=== PATIENT | female | born 1935 | race Caucasian/White ===

== ENCOUNTER 2016-10-24 14:55 | Inpatient (IN) | payer MEDICARE, MEDICAID ==
--- NOTE | 2016-10-24 16:02 | ED Physician Chart ---
Chief Complaint/HPI - Patient Information Date Seen:: 10/24/16 Time Seen:: 15:45 Chief Complaint:: leaking G-tube History of Present Illness:: G-tube has been leaking for about one month. Historian:: EMS Review:: Transfer documents Reviewed Review of Systems - Review of Systems General/Constitutional: No fever, No chills Skin: No skin lesions Head: No headache Eyes: No loss of vision ENT: No earache Neck: No neck pain Cardio Vascular: No chest pain, No palpitations Pulmonary: No SOB, No cough GI: No nausea, No vomiting G/U: No dysuria Musculoskeletal: No bone or joint pain Endocrine: No polyuria Psychiatric: Other (not available) Hematopoietic: No bruising Allergic/Immuno: No urticaria Neurological: No syncope, Focal symptoms Past Medical History - Past Medical History Past Medical History: HTN, Dyslipidemia, Other (Parkinson's disease; osteoporosis; hemiplagia; CVA; contractures both knees and left wrist) Family History: Other (unavailable) Social History: Non Smoker, No Alcohol, Care Facility Surgical History: PEG/GTube Psychiatricy History: Other (patient is non verbal) Family Medical History - Family Member Mother History Unknown: Yes Physical Exam - Physical Examination General/Constitutional: No distress Other Gen/Cons comments:: non verbal Head: Atraumatic Other Eyes comments:: conjunctival discharge Skin: Nl inspection ENMT: External ears, nose nl Neck: No stridor Respiratory: Nl effort/Exclusion, Clear to Auscultation Cardio Vascular: RRR, No murmur, gallop, rubs GI: No tenderness/rebounding/guarding, No organomegaly Other GI comments:: G-tube does not have port for deflation of balloon Other Extremities comments:: contracture of knees and of left arm Other Neuro/Psych comments:: non-verbal Labs/Radiology/EKG Results - Lab Results Results: Laboratory Results - last 24 hr 10/24/16 10/24/16 10/24/16 16:13 16:13 16:13 WBC 9.7 RBC 4.40 Hgb 12.8 Hct 38.5 MCV 87.4 MCH 29.2 MCHC Differential 33.4 RDW 13.3 Plt Count 232 MPV 8.1 Neutrophils % 63.7 Lymphocytes % 23.5 Monocytes % 5.2 Eosinophils % 3.8 Basophils % 3.8 H PT 10.5 INR 1.06 PTT (Actin FS) 27.6 Sodium 133 L Potassium 4.4 Chloride 103 Carbon Dioxide 25.5 Anion Gap 8.9 BUN 22 Creatinine 0.5 L Est GFR ( Amer) TNP Est GFR (Non-Af Amer) TNP BUN/Creatinine Ratio 44.0 Glucose 94 Calcium 8.9 - EKG Interpretations Rhythm: NSR [place]: normal Rate: 72 ED Septic Shock - . Is Septic Shock (SBP<90, OR Lactate>4 mmol\L) present?: No Reassessment (Disposition) - Reassessment Reassessment Condition:: Unchanged - Diagnosis Diagnosis:: G-tube replacement; s/p CVA with aphasia - Patient Disposition Admitted to:: Med/Surg Spoke to:: Evert Rasmussen Admitting Medical Physician:: Evert Rasmussen Condition at Disposition:: Stable, Unchanged
[2016-10-24 16:27] LABS: % BASOPHILS 3.8 % (0.0-2.0); % EOSINOPHILS 3.8 % (0.0-5.0); % LYMPHOCYTES 23.5 % (20.0-50.0); % MONOCYTES 5.2 % (2.0-10.0); % NEUTROPHILS 63.7 % (40.0-80.0); HEMATOCRIT 38.5 % (35.0-45.0); HEMOGLOBIN 12.8 gm/dL (11.7-16.1); MEAN CELL VOLUME 87.4 fl (81-100); MEAN CORPUSCULAR HEMOGLOBIN 29.2 pg (27.0-31.0); MEAN CORPUSCULAR HGB CONC 33.4 pg (28.0-36.0); MEAN PLATELET VOLUME 8.1 fl; NEUTROPHILE ABSOLUTE 6.1 Th/cmm (1.8-8.0); PLATELET COUNT 232 Th/cmm (150-400); RED CELL DISTRIBUTION WIDTH 13.3 % (11.5-20.0); WHITE BLOOD COUNT 9.7 Th/cmm (4.8-10.8)
[2016-10-24 16:37] LABS: INR 1.06 (0.5-1.4); PROTHROMBIN TIME (TEST) 10.5 SECONDS (9.5-11.5)
[2016-10-24 16:38] LABS: ANION GAP 8.9 (7.0-16.0); BUN - UREA NITROGEN 22 mg/dL (7-25); CALCIUM SERUM 8.9 mg/dL (8.6-10.3); CARBON DIOXIDE 25.5 mEq/L (21.0-31.0); CHLORIDE 103 mEq/L (98-107); CREATININE - SERUM 0.5 mg/dL (0.6-1.2); GLUCOSE 94 mg/dL (70-105); POTASSIUM SERUM 4.4 mEq/L (3.5-5.1); SODIUM SERUM 133 mEq/L (136-145)
[2016-10-24] MEDS ORDERED: Magnesium Hydroxide (MOM) 30 mL UDC GT PRN (21:05)
[2016-10-24] MEDS: Sodium Chloride 0.9% 1,000 ML IV SCH (23:45)
--- NOTE | 2016-10-25 08:58 | General Progress Note ---
Subjective - Review of Systems Service Date: 10/25/16 Subjective: Non verbal Objective - Results Result Diagrams: 10/24/16 16:13 10/24/16 16:13 Recent Labs: Laboratory Last Values WBC 9.7 Th/cmm (4.8-10.8) 10/24/16 16:13 RBC 4.40 Mil/cmm (3.80-5.20) 10/24/16 16:13 Hgb 12.8 gm/dL (11.7-16.1) 10/24/16 16:13 Hct 38.5 % (35.0-45.0) 10/24/16 16:13 MCV 87.4 fl (81-100) 10/24/16 16:13 MCH 29.2 pg (27.0-31.0) 10/24/16 16:13 MCHC Differential 33.4 pg (28.0-36.0) 10/24/16 16:13 RDW 13.3 % (11.5-20.0) 10/24/16 16:13 Plt Count 232 Th/cmm (150-400) 10/24/16 16:13 MPV 8.1 fl 10/24/16 16:13 Neutrophils % 63.7 % (40.0-80.0) 10/24/16 16:13 Lymphocytes % 23.5 % (20.0-50.0) 10/24/16 16:13 Monocytes % 5.2 % (2.0-10.0) 10/24/16 16:13 Eosinophils % 3.8 % (0.0-5.0) 10/24/16 16:13 Basophils % 3.8 % (0.0-2.0) H 10/24/16 16:13 PT 10.5 SECONDS (9.5-11.5) 10/24/16 16:13 INR 1.06 (0.5-1.4) 10/24/16 16:13 PTT (Actin FS) 27.6 SECONDS (26.0-38.0) 10/24/16 16:13 Sodium 133 mEq/L (136-145) L 10/24/16 16:13 Potassium 4.4 mEq/L (3.5-5.1) 10/24/16 16:13 Chloride 103 mEq/L (98-107) 10/24/16 16:13 Carbon Dioxide 25.5 mEq/L (21.0-31.0) 10/24/16 16:13 Anion Gap 8.9 (7.0-16.0) 10/24/16 16:13 BUN 22 mg/dL (7-25) 10/24/16 16:13 Creatinine 0.5 mg/dL (0.6-1.2) L 10/24/16 16:13 Est GFR ( Amer) TNP 10/24/16 16:13 Est GFR (Non-Af Amer) TNP 10/24/16 16:13 BUN/Creatinine Ratio 44.0 10/24/16 16:13 Glucose 94 mg/dL (70-105) 10/24/16 16:13 Calcium 8.9 mg/dL (8.6-10.3) 10/24/16 16:13 - Physical Exam Vitals and I&O: Vital Signs Temp 98.5 F 10/25/16 04:00 Pulse 74 10/25/16 04:00 Resp 18 10/25/16 04:00 BP 160/86 10/25/16 04:00 Pulse Ox 98 10/25/16 04:00 Active Medications: Current Medications Acetaminophen (Tylenol 650mg/20.3ml Suspension) 640 mg GT Q8HR PRN PRN Reason: Pain (Moderate) Stop: 12/23/16 21:03 Ascorbic Acid (Vitamin C) 500 mg GT DAILY JAYLEN Stop: 12/24/16 08:59 Calcium/Vitamin D (Oscal W/Vitamin D) 1 tab GT BID JAYLEN Stop: 12/24/16 08:59 Carbidopa/Levodopa (Sinemet 25mg-100 Mg) 1 tab GT QID JAYLEN Stop: 12/24/16 08:59 Clonidine HCl (Catapres) 0.1 mg GT BID PRN PRN Reason: hypertension Stop: 12/23/16 21:04 Docusate Sodium (Colace) 200 mg PO DAILY [facility] Stop: 12/24/16 08:59 Sodium Chloride (Nacl 0.9%) 1,000 mls @ 75 mls/hr IV .[id number] JAYLEN Stop: 12/23/16 21:14 Last Admin: 10/24/16 23:45 Dose: 75 mls/hr [facility] 1 drop EACH EYE HS JAYLEN Stop: 12/24/16 20:59 Magnesium Hydroxide (Milk Of Magnesia) 30 ml GT HS PRN PRN Reason: Constipation Stop: 12/23/16 21:04 Multivitamins/Vitamin C (Theragran) 5 ml GT DAILY JAYLEN Stop: 12/24/16 08:59 General: Other (Eyes open , non verbal) HEENT: Atraumatic Neck: Supple Cardiovascular: Regular rate Lungs: Clear to auscultation Abdomen: Bowel sounds, Soft, Other (G-tube in place) Neurological: Other (Non ambulatory) Skin: Other (Warm and dry) Psych/Mental Status: Other (Confused, not oriented) Assessment/Plan - Assessment Assessment: Patient is awake, non verbal, in no acute distress. Dx: G-tube malfuntion, Dementia, Quadraplegic, S/p CVA, HTN, Dysphagia. - Plan Plan: Consult with GI for Peg change
[2016-10-25] MEDS ORDERED: Non-Formulary Item 1 EA (Vit C/Ascorbate Ca/Ascorb Sod [Vitamin C 500 Mg/15 Ml Liquid] 500 GT SCH (09:00)
[2016-10-25 10:18] LABS: % BASOPHILS 0.6 % (0.0-2.0); % EOSINOPHILS 3.2 % (0.0-5.0); % LYMPHOCYTES 22.4 % (20.0-50.0); % MONOCYTES 6.6 % (2.0-10.0); % NEUTROPHILS 67.2 % (40.0-80.0); HEMOGLOBIN 12.9 gm/dL (11.7-16.1); MEAN CELL VOLUME 88.1 fl (81-100); MEAN CORPUSCULAR HEMOGLOBIN 29.1 pg (27.0-31.0); MEAN CORPUSCULAR HGB CONC 33.1 pg (28.0-36.0); MEAN PLATELET VOLUME 8.2 fl; NEUTROPHILE ABSOLUTE 5.6 Th/cmm (1.8-8.0); PLATELET COUNT 223 Th/cmm (150-400); RED BLOOD COUNT 4.43 Mil/cmm (3.80-5.20); RED CELL DISTRIBUTION WIDTH 13.2 % (11.5-20.0); WHITE BLOOD COUNT 8.5 Th/cmm (4.8-10.8)
[2016-10-25 10:28] LABS: ALB/GLOB RATIO 0.9 (1.0-1.8); ALKALINE PHOSPHATASE 134 U/L (34-104); ANION GAP 8.9 (7.0-16.0); BILIRUBIN,TOTAL 0.6 mg/dL (0.3-1.0); BUN - UREA NITROGEN 21 mg/dL (7-25); CALCIUM SERUM 8.9 mg/dL (8.6-10.3); CARBON DIOXIDE 25.2 mEq/L (21.0-31.0); CHLORIDE 106 mEq/L (98-107); CREATININE - SERUM 0.6 mg/dL (0.6-1.2); GLUCOSE 83 mg/dL (70-105); POTASSIUM SERUM 4.1 mEq/L (3.5-5.1); SGOT 24 U/L (13-39); SGPT/ALT 28 U/L (7-52); SODIUM SERUM 136 mEq/L (136-145)
[2016-10-25 10:37] LABS: INR 1.08 (0.5-1.4); PROTHROMBIN TIME (TEST) 10.7 SECONDS (9.5-11.5)
[2016-10-25] MEDS ORDERED: Diatrizoate Meglumine/Diatri 30 mL Sol PO ONE (11:07)
--- NOTE | 2016-10-25 11:08 | Diagnostic Imaging Report ---
Upper GI (Limited) HISTORY: Gastrostomy tube placement Water-soluble contrast was instilled through the patient's gastrostomy tube. The exam demonstrates opacification the gastric lumen. There is an otherwise nonspecific bowel gas pattern. Stool noted in the rectal area. IMPRESSION: 1. Confirmation of gastrostomy tube within the gastric lumen
[2016-10-25] MEDS: Ascorbic Acid 500 mg/5 mL UDC GT SCH (11:14)
[2016-10-25] MEDS: Multivitamin 5 mL UDC GT SCH (11:15)
[2016-10-25] MEDS: Calcium Carb/Vit D 500 mg/200 U Tab GT SCH ×2 (11:15→17:59)
--- NOTE | 2016-10-25 11:25 | History & Physical ---
CHIEF COMPLAINT: Malfunction of the G-tube. HISTORY OF PRESENT ILLNESS: This is the case of an 80-year-old female who I follow in the assisted. I received a call from the assisted stating the G-tube was leaking and was necessary to replace. Order was given to send the patient to the hospital to change G-tube. PAST MEDICAL HISTORY: The patient has past medical history of dementia, status post CVA, hypertension, dysphagia, functional quadriplegia. The patient is bed bound. SOCIAL HISTORY: The patient is a permanent resident of a assisted. MEDICATIONS: Reviewed. PAST SURGICAL HISTORY: G-tube placement. REVIEW OF SYSTEMS: Information was not obtained secondary to the patient's mental condition. PHYSICAL EXAMINATION: GENERAL: Does reveal fairly nourished and developed female. Eye opens, not verbal, in no acute distress. HEENT: Head is normocephalic and atraumatic. Eyes: Pupils reactive to light. Nose: No evidence of nasal obstruction. Ears: No evidence of any discharge. Mouth: Fairly ____, teeth missing. LUNGS: Bilateral decreased air entry. HEART: Regular rhythm. ABDOMEN: Soft, nontender. Bowel sounds present. G-tube in place with ____ from G-tube placement. EXTREMITIES: Limited movement of all extremities. The patient is functional quadriplegic. No edema. NEUROLOGICAL: The patient is awake, confused, nonverbal. Neurological examination was not completed secondary to the patient's mental condition. IMPRESSION: 1. G-tube malfunction. 2. Dementia. 3. Status post cerebrovascular accident. 4. Hypertension. 5. Dysphagia. 6. Functional quadriplegic. 7. Bed bound. PLAN: 1. The patient will be admitted in medical surgical floor. 2. Consult with GI for G-tube replacement. 3. Continue with assisted medications. 4. Continue with the same feeding from assisted. 5. IV normal saline. JOB# [id number]
[2016-10-25] MEDS: Sodium Chloride 0.9% 1,000 ML IV SCH (13:50)
--- NOTE | 2016-10-25 14:00 | Operative Report ---
INPATIENT GASTROINTESTINAL PROCEDURE NOTE NAME OF PROCEDURE: G-tube change. REFERRING PHYSICIAN: Dr. Rasmussen. REASON FOR PROCEDURE: Malfunctioning G-tube, dysphagia. PREOPERATIVE DIAGNOSES: Dysphagia, malfunctioning G-tube. POSTOPERATIVE DIAGNOSES: Malfunctioning G-tube, dysphagia, and G-tube change. DESCRIPTION OF PROCEDURE: The patient was placed on her back. The old G-tube was identified. It was an original PEG tube type. It was pulled out by traction method. A new 20-Nigerien gastrostomy tube was lubricated. The tip inserted through the gastrocutaneous fistula entering stomach lumen. Internal balloon was inflated with 15 mL of sterile saline. Outer flange was secured in position. Procedure was then completed. COMPLICATIONS: None. FINDINGS: New 20-Nigerien gastrostomy tube placed. RECOMMENDATIONS: 1. KUB Gastrografin confirmed placement. 2. If it is in stomach, may begin using it. 3. Check residual every 6 hours and hold if greater than 100 mL. Thank you for allowing me to participate. Please call me if any questions. JOB# [id number]
[2016-10-25] MEDS ORDERED: VTE Chemical Prophylaxis Screen/Admission MC PRN (16:54)
--- NOTE | 2016-10-25 23:26 | Consultation ---
INPATIENT GI CONSULT REFERRING PHYSICIAN: Dr. Rasmussen. REASON FOR CONSULTATION: Malfunctioning G-tube. HISTORY OF PRESENT ILLNESS: This is an 80-year-old female with a G-tube that is leaking and we were asked to see the patient. The patient is otherwise a poor historian, unable to give me a meaningful history. PAST MEDICAL HISTORY: Dysphagia, hypertension, hyperlipidemia, Parkinson disease, osteoporosis, and stroke. PAST SURGICAL HISTORY: PEG tube placement. FAMILY HISTORY: Noncontributory. SOCIAL HISTORY: No tobacco, alcohol, or IV drug usage. ALLERGIES: None. CURRENT MEDICATIONS: Tylenol, vitamin C, Os-Cm, Sinemet, Catapres, Colace, and milk of magnesia. REVIEW OF SYSTEMS: Unobtainable. PHYSICAL EXAMINATION: VITAL SIGNS: Temperature 98.5, breathing 18, pulse 74, blood pressure 160/86, and satting 98%. GENERAL: No apparent distress. HEENT: Eyes: Anicteric, normal conjunctivae. Head is normocephalic and atraumatic. Moist mucous membranes. NECK: Soft, supple. CHEST: Clear, normal effort. CARDIOVASCULAR: Regular rate and rhythm. ABDOMEN: Soft, nontender, and nondistended with a G-tube. SKIN: Warm and dry. EXTREMITIES: Reveal no cyanosis. PSYCHOLOGICAL: Awake. LABORATORY DATA: Show white count 9.7, hemoglobin 12.8, and platelets of 232,000. INR is 1.06. IMPRESSION: An 80-year-old female with underlying dysphagia, has a G-tube that is malfunctioning, leaking actually and will need to have it replaced by traction method. PLAN: 1. G-tube to be changed at bedside. 2. Continue supportive care. Thank you for allowing me to participate. Please call me if you have any questions. JOB# [id number]
[2016-10-26 06:32] LABS: % BASOPHILS 0.4 % (0.0-2.0); % EOSINOPHILS 2.8 % (0.0-5.0); % LYMPHOCYTES 22.3 % (20.0-50.0); % MONOCYTES 5.4 % (2.0-10.0); % NEUTROPHILS 69.1 % (40.0-80.0); HEMATOCRIT 40.3 % (35.0-45.0); HEMOGLOBIN 13.4 gm/dL (11.7-16.1); MEAN CELL VOLUME 87.7 fl (81-100); MEAN CORPUSCULAR HEMOGLOBIN 29.1 pg (27.0-31.0); MEAN CORPUSCULAR HGB CONC 33.1 pg (28.0-36.0); NEUTROPHILE ABSOLUTE 6.6 Th/cmm (1.8-8.0); PLATELET COUNT 224 Th/cmm (150-400); RED CELL DISTRIBUTION WIDTH 13.1 % (11.5-20.0); WHITE BLOOD COUNT 9.5 Th/cmm (4.8-10.8)
[2016-10-26 06:54] LABS: ALB/GLOB RATIO 0.9 (1.0-1.8); ALKALINE PHOSPHATASE 136 U/L (34-104); ANION GAP 12.6 (7.0-16.0); BILIRUBIN,TOTAL 0.6 mg/dL (0.3-1.0); BUN - UREA NITROGEN 18 mg/dL (7-25); CALCIUM SERUM 9.3 mg/dL (8.6-10.3); CARBON DIOXIDE 19.9 mEq/L (21.0-31.0); CHLORIDE 106 mEq/L (98-107); CREATININE - SERUM 0.5 mg/dL (0.6-1.2); GLUCOSE 89 mg/dL (70-105); POTASSIUM SERUM 4.5 mEq/L (3.5-5.1); SGOT 26 U/L (13-39); SGPT/ALT 7 U/L (7-52); SODIUM SERUM 134 mEq/L (136-145)
--- NOTE | 2016-10-26 08:48 | General Progress Note ---
Subjective - Review of Systems Service Date: 10/26/16 Subjective: Non verbal Objective - Results Result Diagrams: 10/26/16 05:21 10/26/16 05:21 Recent Labs: Laboratory Last Values WBC 9.5 Th/cmm (4.8-10.8) 10/26/16 05:21 RBC 4.60 Mil/cmm (3.80-5.20) 10/26/16 05:21 Hgb 13.4 gm/dL (11.7-16.1) 10/26/16 05:21 Hct 40.3 % (35.0-45.0) 10/26/16 05:21 MCV 87.7 fl (81-100) 10/26/16 05:21 MCH 29.1 pg (27.0-31.0) 10/26/16 05:21 MCHC Differential 33.1 pg (28.0-36.0) 10/26/16 05:21 RDW 13.1 % (11.5-20.0) 10/26/16 05:21 Plt Count 224 Th/cmm (150-400) 10/26/16 05:21 MPV 9.0 fl 10/26/16 05:21 Neutrophils % 69.1 % (40.0-80.0) 10/26/16 05:21 Lymphocytes % 22.3 % (20.0-50.0) 10/26/16 05:21 Monocytes % 5.4 % (2.0-10.0) 10/26/16 05:21 Eosinophils % 2.8 % (0.0-5.0) 10/26/16 05:21 Basophils % 0.4 % (0.0-2.0) 10/26/16 05:21 PT 10.7 SECONDS (9.5-11.5) 10/25/16 10:00 INR 1.08 (0.5-1.4) 10/25/16 10:00 PTT (Actin FS) 27.6 SECONDS (26.0-38.0) 10/24/16 16:13 Sodium 134 mEq/L (136-145) L 10/26/16 05:21 Potassium 4.5 mEq/L (3.5-5.1) 10/26/16 05:21 Chloride 106 mEq/L (98-107) 10/26/16 05:21 Carbon Dioxide 19.9 mEq/L (21.0-31.0) L 10/26/16 05:21 Anion Gap 12.6 (7.0-16.0) 10/26/16 05:21 BUN 18 mg/dL (7-25) 10/26/16 05:21 Creatinine 0.5 mg/dL (0.6-1.2) L 10/26/16 05:21 Est GFR ( Amer) TNP 10/26/16 05:21 Est GFR (Non-Af Amer) TNP 10/26/16 05:21 BUN/Creatinine Ratio 36.0 10/26/16 05:21 Glucose 89 mg/dL (70-105) 10/26/16 05:21 Calcium 9.3 mg/dL (8.6-10.3) 10/26/16 05:21 Total Bilirubin 0.6 mg/dL (0.3-1.0) 10/26/16 05:21 AST 26 U/L (13-39) 10/26/16 05:21 ALT 7 U/L (7-52) 10/26/16 05:21 Alkaline Phosphatase 136 U/L (34-104) H 10/26/16 05:21 Total Protein 7.4 gm/dL (6.0-8.3) 10/26/16 05:21 Albumin 3.4 gm/dL (3.7-5.3) L 10/26/16 05:21 Globulin 4.0 gm/dL 10/26/16 05:21 Albumin/Globulin Ratio 0.9 (1.0-1.8) L 10/26/16 05:21 - Physical Exam Vitals and I&O: Vital Signs Temp 97.7 F 10/26/16 07:57 Pulse 68 10/26/16 07:57 Resp 18 10/26/16 07:57 BP 108/52 10/26/16 07:57 Pulse Ox 98 10/26/16 07:57 Intake & Output 10/25/16 10/26/16 10/26/16 18:59 06:59 18:59 Intake Total 1000 Balance 1000 Intake: Intake, IV Amount 1000 Sodium Chloride 0.9% 1, 1000 000 ml @ 75 mls/hr IV . [id number] [facility] Rx#:[id number] Active Medications: Current Medications Acetaminophen (Tylenol 650mg/20.3ml Suspension) 640 mg GT Q8HR PRN PRN Reason: Pain (Moderate) Stop: 12/23/16 21:03 Ascorbic Acid (Vitamin C) 500 mg GT DAILY JAYLEN Stop: 12/24/16 08:59 Last Admin: 10/25/16 11:14 Dose: Not Given Calcium/Vitamin D (Oscal W/Vitamin D) 1 tab GT BID JAYLEN Stop: 12/24/16 08:59 Last Admin: 10/25/16 17:59 Dose: 1 tab Carbidopa/Levodopa (Sinemet 25mg-100 Mg) 1 tab GT QID JAYLEN Stop: 12/24/16 08:59 Last Admin: 10/25/16 23:32 Dose: 1 tab Clonidine HCl (Catapres) 0.1 mg GT BID PRN PRN Reason: SBP>160 Stop: 12/23/16 21:04 Last Admin: 10/26/16 05:24 Dose: 0.1 mg Docusate Sodium (Colace) 200 mg PO DAILY JAYLEN Stop: 12/24/16 08:59 Last Admin: 10/25/16 11:15 Dose: Not Given Heparin Sodium (Porcine) (Heparin) 5,000 units SUBQ Q12H JAYLEN Stop: 12/24/16 20:59 Last Admin: 10/25/16 23:32 Dose: 5,000 units Sodium Chloride (Nacl 0.9%) 1,000 mls @ 75 mls/hr IV .[id number] JAYLEN Stop: 12/23/16 21:14 Last Admin: 10/25/16 13:50 Dose: 75 mls/hr Latanoprost (Xalatan 0.005% Oph Soln) 1 drop EACH EYE HS JAYLEN Stop: 12/24/16 20:59 Last Admin: 10/25/16 23:33 Dose: 1 drop Magnesium Hydroxide (Milk Of Magnesia) 30 ml GT HS PRN PRN Reason: Constipation Stop: 12/23/16 21:04 Miscellaneous (Vte Chemical Prophylaxis Screen/ Admission) 1 ea [facility] PRN PRN PRN Reason: PROTOCOL Stop: 12/24/16 16:53 Multivitamins/Vitamin C (Theragran) 5 ml GT DAILY JAYLEN Stop: 12/24/16 08:59 Last Admin: 01/06/17 11:15 Dose: Not Given General: Other (Eyes open, non verbal) HEENT: Atraumatic Neck: Supple Cardiovascular: Regular rate Lungs: Other (Bilateral decreased air entry) Abdomen: Bowel sounds, Soft, Other (PEG in place.) Extremities: Other (No edema) Neurological: Other (Funtional quadriplegic) Skin: Other (Warm and dry) Psych/Mental Status: Other (Non verbal.) - Procedures Procedures: Procedures Procedure Code Date CHANGE FEEDING DEVICE IN UP INTEST TRACT, CLAM DREDGER APPROACH [id number] 10/24/16 CHANGE GASTROSTOMY TUBE 74581 10/24/16 Assessment/Plan - Assessment Assessment: Patient non verbal, in no acute distress. Dx: G-tube malfuntion, Dementia, Quadraplegic, S/p CVA, HTN, Dysphagia. G-tube was replaced. - Plan Plan: CXR will be request. G-tube feeding will be started.
[2016-10-26] MEDS: Multivitamin 5 mL UDC GT SCH (09:19)
[2016-10-26] MEDS: Ascorbic Acid 500 mg/5 mL UDC GT SCH (09:20)
[2016-10-26] MEDS: Calcium Carb/Vit D 500 mg/200 U Tab GT SCH ×2 (09:20→16:53)
--- NOTE | 2016-10-26 10:53 | Diagnostic Imaging Report ---
Portable chest x-ray HISTORY: Shortness of breath There is elevation the right hemidiaphragm along with colonic interposition between the diaphragm and right lobe the liver. No acute focal pulmonary processes. IMPRESSION: 1. No acute abnormalities
[2016-10-26] MEDS: Sodium Chloride 0.9% 1,000 ML IV SCH ×2 (14:20→16:55)
[2016-10-27] MEDS: Sodium Chloride 0.9% 1,000 ML IV SCH ×2 (02:17→16:33)
[2016-10-27] MEDS: Calcium Carb/Vit D 500 mg/200 U Tab GT SCH ×2 (09:17→16:22)
[2016-10-27] MEDS: Multivitamin 5 mL UDC GT SCH (09:17)
--- NOTE | 2016-10-27 10:47 | General Progress Note ---
Subjective - Review of Systems Service Date: 10/27/16 Subjective: Non verbal Objective - Results Result Diagrams: 10/26/16 05:21 10/26/16 05:21 Recent Labs: Laboratory Last Values WBC 9.5 Th/cmm (4.8-10.8) 10/26/16 05:21 RBC 4.60 Mil/cmm (3.80-5.20) 10/26/16 05:21 Hgb 13.4 gm/dL (11.7-16.1) 10/26/16 05:21 Hct 40.3 % (35.0-45.0) 10/26/16 05:21 MCV 87.7 fl (81-100) 10/26/16 05:21 MCH 29.1 pg (27.0-31.0) 10/26/16 05:21 MCHC Differential 33.1 pg (28.0-36.0) 10/26/16 05:21 RDW 13.1 % (11.5-20.0) 10/26/16 05:21 Plt Count 224 Th/cmm (150-400) 10/26/16 05:21 MPV 9.0 fl 10/26/16 05:21 Neutrophils % 69.1 % (40.0-80.0) 10/26/16 05:21 Lymphocytes % 22.3 % (20.0-50.0) 10/26/16 05:21 Monocytes % 5.4 % (2.0-10.0) 10/26/16 05:21 Eosinophils % 2.8 % (0.0-5.0) 10/26/16 05:21 Basophils % 0.4 % (0.0-2.0) 10/26/16 05:21 PT 10.7 SECONDS (9.5-11.5) 10/25/16 10:00 INR 1.08 (0.5-1.4) 10/25/16 10:00 PTT (Actin FS) 27.6 SECONDS (26.0-38.0) 10/24/16 16:13 Sodium 134 mEq/L (136-145) L 10/26/16 05:21 Potassium 4.5 mEq/L (3.5-5.1) 10/26/16 05:21 Chloride 106 mEq/L (98-107) 10/26/16 05:21 Carbon Dioxide 19.9 mEq/L (21.0-31.0) L 10/26/16 05:21 Anion Gap 12.6 (7.0-16.0) 10/26/16 05:21 BUN 18 mg/dL (7-25) 10/26/16 05:21 Creatinine 0.5 mg/dL (0.6-1.2) L 10/26/16 05:21 Est GFR ( Amer) TNP 10/26/16 05:21 Est GFR (Non-Af Amer) TNP 10/26/16 05:21 BUN/Creatinine Ratio 36.0 10/26/16 05:21 Glucose 89 mg/dL (70-105) 10/26/16 05:21 Calcium 9.3 mg/dL (8.6-10.3) 10/26/16 05:21 Total Bilirubin 0.6 mg/dL (0.3-1.0) 10/26/16 05:21 AST 26 U/L (13-39) 10/26/16 05:21 ALT 7 U/L (7-52) 10/26/16 05:21 Alkaline Phosphatase 136 U/L (34-104) H 10/26/16 05:21 Total Protein 7.4 gm/dL (6.0-8.3) 10/26/16 05:21 Albumin 3.4 gm/dL (3.7-5.3) L 10/26/16 05:21 Globulin 4.0 gm/dL 10/26/16 05:21 Albumin/Globulin Ratio 0.9 (1.0-1.8) L 10/26/16 05:21 - Physical Exam Vitals and I&O: Vital Signs Temp 98.9 F 10/27/16 07:59 Pulse 52 10/27/16 07:59 Resp 19 10/27/16 08:00 BP 130/60 10/27/16 07:59 Pulse Ox 99 10/27/16 07:59 Intake & Output 10/26/16 10/27/16 10/27/16 18:59 06:59 18:59 Intake Total 1023.75 1302.5 Balance 1023.75 1302.5 Intake: Intake, IV Amount 193.75 702.5 Sodium Chloride 0.9% 1, 193.75 702.5 000 ml @ 75 mls/hr IV . [id number] [facility] Rx#:[id number] Tube Feeding 580 480 Other 250 120 Other: # Voids 5 3 # Bowel Movements 0 Active Medications: Current Medications Acetaminophen (Tylenol 650mg/20.3ml Suspension) 640 mg GT Q8HR PRN PRN Reason: Pain (Moderate) Stop: 12/23/16 21:03 Ascorbic Acid (Vitamin C) 500 mg GT DAILY [facility] Stop: 12/24/16 08:59 Last Admin: 10/26/16 09:20 Dose: 500 mg Calcium/Vitamin D (Oscal W/Vitamin D) 1 tab GT BID [facility] Stop: 12/24/16 08:59 Last Admin: 10/27/16 09:17 Dose: 1 tab Carbidopa/Levodopa (Sinemet 25mg-100 Mg) 1 tab GT QID [facility] Stop: 12/24/16 08:59 Last Admin: 10/27/16 09:17 Dose: 1 tab Clonidine HCl (Catapres) 0.1 mg GT BID PRN PRN Reason: SBP>160 Stop: 12/23/16 21:04 Last Admin: 10/26/16 05:24 Dose: 0.1 mg Docusate Sodium (Colace) 200 mg PO DAILY [facility] Stop: 12/24/16 08:59 Last Admin: 10/27/16 09:17 Dose: 200 mg Doxycycline Hyclate (Vibramycin) 100 mg PO Q12HR [facility] Stop: 12/25/16 20:59 Last Admin: 10/27/16 09:17 Dose: 100 mg Heparin Sodium (Porcine) (Heparin) 5,000 units SUBQ Q12H [facility] Stop: 12/24/16 20:59 Last Admin: 10/27/16 09:17 Dose: 5,000 units Sodium Chloride (Nacl 0.9%) 1,000 mls @ 75 mls/hr IV .[id number] [facility] Stop: 12/23/16 21:14 Last Admin: 10/27/16 02:17 Dose: 75 mls/hr Latanoprost (Xalatan 0.005% Ophth Soln) 1 drop EACH EYE HS [facility] Stop: 12/24/16 20:59 Last Admin: 10/26/16 21:14 Dose: 1 drop Magnesium Hydroxide (Milk Of Magnesia) 30 ml GT HS PRN PRN Reason: Constipation Stop: 12/23/16 21:04 Miscellaneous (Vte Chemical Prophylaxis Screen/ Admission) 1 ea [facility] PRN PRN PRN Reason: PROTOCOL Stop: 12/24/16 16:53 Multivitamins/Vitamin C (Theragran) 5 ml GT DAILY JAYLEN Stop: 12/24/16 08:59 Last Admin: 10/27/16 09:17 Dose: 5 ml General: Other (Eyes open non verbal) HEENT: Atraumatic Neck: Supple Cardiovascular: Regular rate Lungs: Clear to auscultation Abdomen: Bowel sounds, Soft, Other (Peg in place) Neurological: Other (Non ambulatory) Skin: Other (Warm and dry) Psych/Mental Status: Other (Confused) - Procedures Procedures: Procedures Procedure Code Date CHANGE FEEDING DEVICE IN UP INTEST TRACT, TAPE LIBRARIAN APPROACH [id number] 10/24/16 CHANGE GASTROSTOMY TUBE 09993 10/24/16 Assessment/Plan - Assessment Assessment: Patient non verbal, in no acute distress. Dx: G-tube malfuntion, Dementia, Quadraplegic, S/p CVA, HTN, Dysphagia. G-tube was replaced. - Plan Plan: Case was discussed with MYRON and she wants patient be discharge to a SNF close to her home.
[2016-10-27] MEDS: Ascorbic Acid 500 mg/5 mL UDC GT SCH (12:23)
[2016-10-28] MEDS: Sodium Chloride 0.9% 1,000 ML IV SCH (05:57)
[2016-10-28] MEDS ORDERED: Dextrose 50% 50 mL Abboject IVP ONE (07:12)
--- NOTE | 2016-10-28 08:41 | General Progress Note ---
Subjective - Review of Systems Service Date: 10/28/16 Subjective: Non verbal Objective - Results Result Diagrams: 10/26/16 05:21 10/26/16 05:21 Recent Labs: Laboratory Last Values WBC 9.5 Th/cmm (4.8-10.8) 10/26/16 05:21 RBC 4.60 Mil/cmm (3.80-5.20) 10/26/16 05:21 Hgb 13.4 gm/dL (11.7-16.1) 10/26/16 05:21 Hct 40.3 % (35.0-45.0) 10/26/16 05:21 MCV 87.7 fl (81-100) 10/26/16 05:21 MCH 29.1 pg (27.0-31.0) 10/26/16 05:21 MCHC Differential 33.1 pg (28.0-36.0) 10/26/16 05:21 RDW 13.1 % (11.5-20.0) 10/26/16 05:21 Plt Count 224 Th/cmm (150-400) 10/26/16 05:21 MPV 9.0 fl 10/26/16 05:21 Neutrophils % 69.1 % (40.0-80.0) 10/26/16 05:21 Lymphocytes % 22.3 % (20.0-50.0) 10/26/16 05:21 Monocytes % 5.4 % (2.0-10.0) 10/26/16 05:21 Eosinophils % 2.8 % (0.0-5.0) 10/26/16 05:21 Basophils % 0.4 % (0.0-2.0) 10/26/16 05:21 PT 10.7 SECONDS (9.5-11.5) 10/25/16 10:00 INR 1.08 (0.5-1.4) 10/25/16 10:00 PTT (Actin FS) 27.6 SECONDS (26.0-38.0) 10/24/16 16:13 Sodium 134 mEq/L (136-145) L 10/26/16 05:21 Potassium 4.5 mEq/L (3.5-5.1) 10/26/16 05:21 Chloride 106 mEq/L (98-107) 10/26/16 05:21 Carbon Dioxide 19.9 mEq/L (21.0-31.0) L 10/26/16 05:21 Anion Gap 12.6 (7.0-16.0) 10/26/16 05:21 BUN 18 mg/dL (7-25) 10/26/16 05:21 Creatinine 0.5 mg/dL (0.6-1.2) L 10/26/16 05:21 Est GFR ( Amer) TNP 10/26/16 05:21 Est GFR (Non-Af Amer) TNP 10/26/16 05:21 BUN/Creatinine Ratio 36.0 10/26/16 05:21 Glucose 89 mg/dL (70-105) 10/26/16 05:21 Calcium 9.3 mg/dL (8.6-10.3) 10/26/16 05:21 Total Bilirubin 0.6 mg/dL (0.3-1.0) 10/26/16 05:21 AST 26 U/L (13-39) 10/26/16 05:21 ALT 7 U/L (7-52) 10/26/16 05:21 Alkaline Phosphatase 136 U/L (34-104) H 10/26/16 05:21 Total Protein 7.4 gm/dL (6.0-8.3) 10/26/16 05:21 Albumin 3.4 gm/dL (3.7-5.3) L 10/26/16 05:21 Globulin 4.0 gm/dL 10/26/16 05:21 Albumin/Globulin Ratio 0.9 (1.0-1.8) L 10/26/16 05:21 - Physical Exam Vitals and I&O: Vital Signs Temp 98.3 F 10/28/16 04:00 Pulse 80 10/28/16 04:00 Resp 18 10/28/16 04:00 BP 143/77 10/28/16 04:00 Pulse Ox 97 10/28/16 04:00 Intake & Output 10/27/16 10/28/16 10/28/16 18:59 06:59 18:59 Intake Total 1000 1720 Output Total 30 Balance 1000 1690 Intake: Intake, IV Amount 1000 1000 Sodium Chloride 0.9% 1, 1000 1000 000 ml @ 75 mls/hr IV . [id number] [facility] Rx#:[id number] Tube Feeding 480 Other 240 Output: Gastric Drainage 30 Other: # Voids 3 # Bowel Movements 2 Active Medications: Current Medications Acetaminophen (Tylenol 650mg/20.3ml Suspension) 640 mg GT Q8HR PRN PRN Reason: Pain (Moderate) Stop: 12/23/16 21:03 Last Admin: 10/27/16 22:02 Dose: 640 mg Ascorbic Acid (Vitamin C) 500 mg GT DAILY [facility] Stop: 12/24/16 08:59 Last Admin: 10/27/16 12:23 Dose: 500 mg Calcium/Vitamin D (Oscal W/Vitamin D) 1 tab GT BID [facility] Stop: 12/24/16 08:59 Last Admin: 10/27/16 16:22 Dose: 1 tab Carbidopa/Levodopa (Sinemet 25mg-100 Mg) 1 tab GT QID [facility] Stop: 12/24/16 08:59 Last Admin: 10/27/16 22:02 Dose: 1 tab Clonidine HCl (Catapres) 0.1 mg GT BID PRN PRN Reason: SBP>160 Stop: 12/23/16 21:04 Last Admin: 10/26/16 05:24 Dose: 0.1 mg Docusate Sodium (Colace) 200 mg PO DAILY [facility] Stop: 12/24/16 08:59 Last Admin: 10/27/16 09:17 Dose: 200 mg Doxycycline Hyclate (Vibramycin) 100 mg PO Q12HR [facility] Stop: 12/25/16 20:59 Last Admin: 10/27/16 22:03 Dose: 100 mg Heparin Sodium (Porcine) (Heparin) 5,000 units SUBQ Q12H [facility] Stop: 12/24/16 20:59 Last Admin: 10/27/16 22:03 Dose: 5,000 units Sodium Chloride (Nacl 0.9%) 1,000 mls @ 75 mls/hr IV .[id number] [facility] Stop: 12/23/16 21:14 Last Admin: 10/28/16 05:57 Dose: 75 mls/hr Latanoprost (Xalatan 0.005% Ophth Soln) 1 drop EACH EYE HS [facility] Stop: 12/24/16 20:59 Last Admin: 10/27/16 22:02 Dose: 1 drop Magnesium Hydroxide (Milk Of Magnesia) 30 ml GT HS PRN PRN Reason: Constipation Stop: 12/23/16 21:04 Miscellaneous (Vte Chemical Prophylaxis Screen/ Admission) 1 ea [facility] PRN PRN PRN Reason: PROTOCOL Stop: 12/24/16 16:53 Multivitamins/Vitamin C (Theragran) 5 ml GT DAILY [facility] Stop: 12/24/16 08:59 Last Admin: 10/27/16 09:17 Dose: 5 ml General: Other (Eyes open, non verbal) HEENT: Atraumatic Cardiovascular: Regular rate Lungs: Clear to auscultation Abdomen: Bowel sounds, Soft, Other (PEG in place) Extremities: Other (No edema) Neurological: Other (Non ambulatory) Skin: Other (Warm and dry) Psych/Mental Status: Other (Non verbal) - Procedures Procedures: Procedures Procedure Code Date CHANGE FEEDING DEVICE IN UP INTEST TRACT, BUSINESS BANKING MANAGER APPROACH [id number] 10/24/16 CHANGE GASTROSTOMY TUBE [id number] 10/24/16 Assessment/Plan - Assessment Assessment: Patient non verbal, in no acute distress. Dx: G-tube malfuntion, Dementia, Quadraplegic, S/p CVA, HTN, Dysphagia. G-tube was replaced. - Plan Plan: Case was discussed with MYRON and she wants patient be discharge to a SNF close to her home. Patient is discharge.
[2016-10-28] MEDS: Calcium Carb/Vit D 500 mg/200 U Tab GT SCH (09:21)
[2016-10-28] MEDS: Multivitamin 5 mL UDC GT SCH (09:21)
[2016-10-28] MEDS: Ascorbic Acid 500 mg/5 mL UDC GT SCH (09:21)
--- NOTE | 2016-10-30 21:04 | Discharge Summary ---
CHIEF COMPLAINT: Malfunction of the G-tube. HISTORY OF PRESENT ILLNESS: This is the case of an 80-year-old female who was sent from half-way to ER secondary to malfunction of G-tube. The patient was sent to hospital to change G-tube. HOSPITAL COURSE AND TREATMENT: This patient was admitted in the medical/surgical floor. She was started on an IV normal saline. She was continued with same feeding and all the medications and consult with GI was done, and a schedule to change G-tube was done. After G-tube was changed, the patient continued with the same feeding, and at this moment, the decision to discharge the patient was done. At the moment of the discharge, the patient was awake, eyes opened, nonverbal, in no acute distress. CONSULT DONE IN THIS CASE: Gastroenterology, Dr. Chaudhry. DISPOSITION: The patient was sent back to half-way where power of commercial real estate attorney person decided to put the patient. DIAGNOSES: 1. Malfunction of G-tube. 2. Dementia. 3. Hypertension. 4. Status post cerebrovascular accident. 5. Dysphagia. 6. Functional quadriplegic. 7. Bedbound. JOB# [id number]
== END 2016-10-28 15:00 | DRG 393 ==
LOC: ER 14:55 → MSI 19:46
PROVIDERS: ADMIT General Practice; ATTEND General Practice
PROC: 0D20XUZ Change Feeding Device in Upper Intestinal Tract, External Approach (ICD-10-PCS; principal; 2016-10-25)
DX: K94.23 Gastrostomy malfunction (principal); R53.2 Functional quadriplegia; G20 Parkinson's disease; F03.90 Unspecified dementia, unspecified severity, without behavioral disturbance, psychotic disturbance, mood disturbance, and anxiety; R13.10 Dysphagia, unspecified; I69.359 Hemiplegia and hemiparesis following cerebral infarction affecting unspecified side; I10 Essential (primary) hypertension; E78.5 Hyperlipidemia, unspecified; M81.0 Age-related osteoporosis without current pathological fracture; I69.320 Aphasia following cerebral infarction; Y83.3 Surgical operation with formation of external stoma as the cause of abnormal reaction of the patient, or of later complication, without mention of misadventure at the time of the procedure; Y92.89 Other specified places as the place of occurrence of the external cause; Z74.01 Bed confinement status
CPT/HCPCS: 36415-UA; 71010-TC; 80048-TC; 80053-TC; 85025-TC; 85610-TC; 85730-TC; 87070-90; 87075-90; 87205-90; 90799; 93005; J1644; J7030; Z7610

== ENCOUNTER 2017-01-15 09:05 | Emergency (ER) | payer MEDICARE, MEDICAID ==
[2017-01-15] MEDS ORDERED: Diatrizoate Meglumine/Diatri 30 mL Sol ONE (09:43)
--- NOTE | 2017-01-15 09:46 | ED Physician Chart ---
Chief Complaint/HPI - Patient Information Date Seen:: 01/15/17 Time Seen:: 09:38 Chief Complaint:: g tube problem History of Present Illness:: pt has had her g tube dislodged sometime during the nt. pt was sent over for g tube to be replaced. the hole has been kept open by the insertion of a jeter catheter. this is a pt of dr rasmussen...ed staff confirmed w dr perez that he wants us to replace the tube. pt is nonverbal and debilitated...cant give hx Allergies:: Allergies Allergy/AdvReac Type Severity Reaction Status Date / Time No Known Allergies Allergy Verified 10/24/16 15:58 Vitals:: Vital Signs - 8 hr 01/15/17 09:15 Temp 98.4 F HR 81 RR 17 BP 159/79 O2 Sat % 97 Historian:: Patient Review of Systems - Review of Systems General/Constitutional: No fever, No chills, No weight loss, No weakness, No diaphoresis, No edema, No loss of appetite, Other (history is very limited...pt is nonverbal and debilitated...cant give hx) Skin: No skin lesions, No rash, No bruising Head: No headache, No light-headedness Eyes: No loss of vision, No pain, No diplopia ENT: No earache, No nasal drainage, No sore throat, No tinnitus Neck: No neck pain, No swelling, No thyromegaly, No stiffness, No mass noted Cardio Vascular: No chest pain, No palpitations, No PND, No orthopnea, No edema Pulmonary: No SOB, No cough, No sputum, No wheezing GI: No nausea, No vomiting, No diarrhea, No pain, No melena, No hematochezia, No constipation, No hematemesis G/U: No dysuria, No frequency, No hematuria Musculoskeletal: No bone or joint pain, No back pain, No muscle pain Endocrine: No polyuria, No polydipsia Psychiatric: Prior psych history, No depression, No anxiety, No suicidal ideation Hematopoietic: No bruising, No lymphadenopathy Allergic/Immuno: No urticaria, No angioedema Neurological: No syncope, No focal symptoms, No weakness, No paresthesia, No headache, No seizure, No dizziness, Confusion, No vertigo Past Medical History - Past Medical History Past Medical History: HTN, CVA/TIA, Dementia, Other (parkinsons dz, cva, glaucoma, ) Social History: Care Facility Surgical History: PEG/GTube Medication: Reviewed Family Medical History - Family Member Mother History Unknown: Yes Physical Exam - Physical Examination General/Constitutional: Awake, Well-developed, well-nourished, Alert, No distress, Non-toxic appearing Other Gen/Cons comments:: chronically debilitated, nonverbal, pt cant speak or communicated nonverbally. pt resists attempt to examine her. she has contracture of all extremities. oral hygeine is atrocious however pt fights to keep me from examining mouth so daily care must be very difficult. mucosa is moist. she appears dementia. Head: Atraumatic Eyes: Lids, conjuctiva normal, PERRL, EOMI Skin: Nl inspection, No rash, No skin lesions, No ecchymosis, Well hydrated, No lymphadenopathy ENMT: External ears, nose nl, Nasal exam nl, Lips, teeth, gums nl Neck: Nontender, Full ROM w/o pain, No JVD, No nuchal rigidity, No bruit, No mass, No stridor Respiratory: Nl effort/Exclusion, Clear to Auscultation, No Wheeze/Rhonchi/Rales Cardio Vascular: RRR, No murmur, gallop, rubs, NL S1 S2 GI: No tenderness/rebounding/guarding, No organomegaly, No hernia, Normal BS's, Nondistended, No mass/bruits, No McBurney tenderness Other GI comments:: well developed gi track to luq. currently has jeter cath in place. no blood or injury visible. : No CVA tenderness Extremities: No tenderness or effusion, Full ROM, normal strength in all extremities, No edema, Normal digits & nails Neuro/Psych: DTR's symmetric Other Neuro/Psych comments:: moves all limbs but not ambulatory. cant follow any commands etc.. Misc: normal gait, Normal back, No paraspinal tenderness Assessment - Procedures Procedures:: replacement of g tube. jeter cath removed. site washed. lube placed at stoma ...18 cabrera peg tube advanced easily through stoma and baloon inflated to 15 ml. no complication. no pain. no bleeding. no resistance. x ray w g-graffin ordered to confirm placement ok..rad dr to read study. Informed Consent: Procedure/risk/benefits explained by MD: No (pt not capable of understanding) ED Septic Shock - . Is Septic Shock (SBP<90, OR Lactate>4 mmol\L) present?: No - <6hrs of presentation: Vital Signs: Vital Signs - 8 hr 01/15/17 09:15 Temp 98.4 F HR 81 RR 17 BP 159/79 O2 Sat % 97 Reassessment (Disposition) - Reassessment Reassessment:: g tube placement confirmed ok by Finn Guerra. Arrangement made to send pt back to [place]. Reassessment Condition:: Improved - Diagnosis Diagnosis:: 1 s/p Peg tube dislodged 2 Peg tube replaced in ED - Aftercare/Follow up Instructions Aftercare/Follow-Up Instructions:: Refer to Discharge Instructions - Patient Disposition Discharge/Transfer:: Dual Rate Dealer Care - SNF Condition at Disposition:: Improved ED Discharge Plan - Patient Disposition Admit/Discharge/Transfer: Discharge/Transfered to SNF Condition at Disposition: Stable Instructions: Care of a Feeding Tube, Gastric Tube Replacement Accepting Physician: Evert Rasmussen [Primary Care Provider] - 1-3 Days
[2017-01-15] MEDS ORDERED: Diatrizoate Meglumine/Diatri 30 mL Sol PO ONE (10:01)
--- NOTE | 2017-01-15 10:13 | Diagnostic Imaging Report ---
Upper GI limited History: G-tube confirmation Comparison: Upper GI series on 10/25/2016 Findings: Utility Worker Roller Shop view demonstrates gas-filled loops of bowel in a nonspecific pattern. Small bilateral effusions are incidentally noted. A percutaneous feeding tube is noted. The second image demonstrates contrast opacification of the stomach and proximal small bowel. IMPRESSION: Intraluminal confirmation of patient's percutaneous gastric feeding tube. Nonspecific bowel gas pattern. Small bilateral pleural effusions incidentally noted.
== END 2017-01-15 12:10 ==
LOC: ER 09:05
DX: Z43.1 Encounter for attention to gastrostomy (principal); I10 Essential (primary) hypertension; Z86.73 Personal history of transient ischemic attack (TIA), and cerebral infarction without residual deficits; Z93.1 Gastrostomy status
CPT/HCPCS: Z7502; Z7610

== ENCOUNTER 2017-08-05 13:19 | Inpatient (IN) | payer MEDICARE, MEDICAID ==
--- NOTE | 2017-08-05 13:33 | ED Physician Chart ---
ED Chief Complaint/HPI - Patient Information Date Seen:: 08/05/17 Time Seen:: 13:15 Chief Complaint:: G-Tube Dysfunction History of Present Illness:: onset x one day of G-Tube dysfunction; no report of trauma, H/As, S/T, neck pain , C/P, SOB, cough, Abd/Flank pain, A/N/V/D/C, fever, chills, or urinary s/s Allergies:: Allergies Allergy/AdvReac Type Severity Reaction Status Date / Time No Known Allergies Allergy Verified 10/24/16 15:58 Historian:: Patient, EMS Review:: Nurse's Note Reviewed, EMS run form Reviewed, Transfer documents Reviewed ED Review of Systems - Review of Systems General/Constitutional: No fever, No chills, No weight loss, No weakness, No diaphoresis, No edema, No loss of appetite Skin: No skin lesions, No rash, No bruising Head: No headache, No light-headedness Eyes: No loss of vision, No pain, No diplopia ENT: No earache, No nasal drainage, No sore throat, No tinnitus Neck: No neck pain, No swelling, No thyromegaly, No stiffness, No mass noted Cardio Vascular: No chest pain, No palpitations, No PND, No orthopnea, No edema Pulmonary: No SOB, No cough, No sputum, No wheezing GI: No nausea, No vomiting, No diarrhea, No pain, No melena, No hematochezia, No constipation, No hematemesis, Other (Dysphagia) G/U: No dysuria, No frequency, No hematuria Latex Fashions Designer: No vaginal discharge, No abnormal vaginal bleed, No contraction Musculoskeletal: No bone or joint pain, No back pain, No muscle pain Endocrine: No polyuria, No polydipsia Psychiatric: No prior psych history, No depression, No anxiety, No suicidal ideation Hematopoietic: No bruising, No lymphadenopathy Allergic/Immuno: No urticaria, No angioedema Neurological: No syncope, Focal symptoms, Weakness, Paresthesia, No headache, No seizure, Dizziness, Confusion, Vertigo ED Past Medical History - Past Medical History Obtainable: Yes Past Medical History: HTN, CVA/TIA, Dyslipidemia, Other (Parkinson's Disease; Osteoporosis) Family History: Diabetes Melitus, HTN Social History: Non Smoker, No Alcohol, No Drug Use, Single, Care Facility Surgical History: PEG/GTube Psychiatricy History: Dementia Medication: Reviewed Family Medical History - Family Member Mother History Unknown: Yes ED Physical Exam - Physical Examination General/Constitutional: Awake, Well-developed, well-nourished, Alert, No distress, GCS 15, Non-toxic appearing, Ambulatory Head: Atraumatic Eyes: Lids, conjuctiva normal, PERRL, EOMI Skin: Nl inspection, No rash, No skin lesions, No ecchymosis, Well hydrated, No lymphadenopathy ENMT: External ears, nose nl, Nasal exam nl, Lips, teeth, gums nl Neck: Nontender, Full ROM w/o pain, No JVD, No nuchal rigidity, No bruit, No mass, No stridor Respiratory: Nl effort/Exclusion, Clear to Auscultation, No Wheeze/Rhonchi/Rales Cardio Vascular: RRR, No murmur, gallop, rubs, NL S1 S2 GI: No tenderness/rebounding/guarding, No organomegaly, No hernia, Normal BS's, Nondistended, No mass/bruits, No McBurney tenderness Other GI comments:: + G-Tube Dysfunction : No CVA tenderness Extremities: No tenderness or effusion, Full ROM, normal strength in all extremities, No edema, Normal digits & nails Neuro/Psych: DTR's symmetric, Normal sensory exam, Normal motor strength, Judgement/insight normal, Mood normal, Normal gait, No focal deficits Other Neuro/Psych comments:: Disoriented, Confused, and Non-Verbal Misc: Normal back, No paraspinal tenderness ED Labs/Radiology/EKG Results - Lab Results Comments:: Na+: 133; WBC: 11.7 ED Septic Shock - . Is Septic Shock (SBP<90, OR Lactate>4 mmol\L) present?: No ED Reassessment (Disposition) - Reassessment Reassessment Condition:: Improved - Diagnosis Diagnosis:: Dx: G-tube Dysfunction' ; Leukocytosis; Hyponatremia; Dehydration; - Aftercare/Follow up Instructions Aftercare/Follow-Up Instructions:: Counseled pt regarding lab results/diagnosis & need follow up, Counseled pt & family regarding lab results/diagnosis & need follow up - Patient Disposition Discharge/Transfer:: Acute Care w/in this hosp Accepting Physician:: Dr. Rasmussen Time Called:: 1430 Time Responded:: 14:30 Admitted to:: Med/Surg Spoke to:: Dr. Rasmussen Admitting Medical Physician:: Dr. Rasmussen Condition at Disposition:: Stable, Improved
[2017-08-05 14:08] LABS: % BASOPHILS 0.1 % (0.0-2.0); % LYMPHOCYTES 18.5 % (20.0-50.0); % MONOCYTES 3.7 % (2.0-10.0); % NEUTROPHILS 75.7 % (40.0-80.0); HEMOGLOBIN 13.4 gm/dL (12-16); MEAN CELL VOLUME 88.2 fl (81-100); MEAN CORPUSCULAR HEMOGLOBIN 28.8 pg (27.0-31.0); MEAN CORPUSCULAR HGB CONC 32.7 pg (28.0-36.0); MEAN PLATELET VOLUME 7.1 fl; NEUTROPHILE ABSOLUTE 8.8 Th/cmm (1.8-8.0); PLATELET COUNT 363 Th/cmm (150-400); RED BLOOD COUNT 4.65 Mil/cmm (3.80-5.20); RED CELL DISTRIBUTION WIDTH 13.4 % (11.5-20.0)
[2017-08-05 14:18] LABS: WHITE BLOOD COUNT 11.5 Th/cmm (4.8-10.8)
[2017-08-05 14:22] LABS: ALB/GLOB RATIO 0.9 (1.0-1.8); ALKALINE PHOSPHATASE 130 U/L (34-104); ANION GAP 9.1 (7.0-16.0); BILIRUBIN,TOTAL 0.5 mg/dL (0.3-1.0); BUN - UREA NITROGEN 19 mg/dL (7-25); BUN/CREATININE RATIO 31.7; CARBON DIOXIDE 25.3 mEq/L (21.0-31.0); CHLORIDE 103 mEq/L (98-107); CHOLESTEROL 148 mg/dL (<200); CREATININE - SERUM 0.6 mg/dL (0.6-1.2); GLUCOSE 108 mg/dL (70-105); POTASSIUM SERUM 4.4 mEq/L (3.5-5.1); SGOT 24 U/L (13-39); SGPT/ALT 28 U/L (7-52); SODIUM SERUM 133 mEq/L (136-145); TRIGLYCERIDES 71 mg/dL (<150)
--- NOTE | 2017-08-05 14:24 | Diagnostic Imaging Report ---
CHEST X-RAY: AP view INDICATION: pain COMPARISON: Chest x-ray 10/26/2016 FINDINGS: There is marked elevation of the right hemidiaphragm limiting assessment of the right lung base. Right basal atelectatic changes are noted. Cardiomegaly is noted. No gross effusion. Degenerative changes of the spine are noted. IMPRESSION: Redemonstration of marked elevation of the right hemidiaphragm limiting assessment of right lung base. Right basal atelectatic changes are seen with no focal consolidation identified. Cardiomegaly.
[2017-08-05 14:38] LABS: INR 1.75 (0.5-1.4); PROTHROMBIN TIME (TEST) 18.7 SECONDS (9.5-11.5)
[2017-08-05] MEDS ORDERED: Sodium Chloride 0.9% 1,000 ML IV SCH ×2 (15:19→17:00)
[2017-08-05 15:53] LABS: URINE BILIRUBIN NEGATIVE (NEGATIVE); URINE BLOOD NEGATIVE (NEGATIVE); URINE GLUCOSE (UA) NEGATIVE (NEGATIVE); URINE KETONE NEGATIVE (NEGATIVE); URINE PH 6.5 (4.6 - 8.0); URINE PROTEIN 30 mg/dL (NEGATIVE); URINE UROBILINOGEN 0.2 E.U./dL (0.2 - 1.0)
[2017-08-05 15:54] LABS: URINE COLOR YELLOW
[2017-08-05 15:55] LABS: URINE BACTERIA NONE SEEN /hpf (NONE SEEN); URINE EPITHELIAL CELLS MODERATE /lpf (FEW); URINE RBC NONE SEEN /hpf (0-5); URINE WBC NONE SEEN /hpf (0-5)
[2017-08-05] MEDS ORDERED: Diatrizoate Meglumine/Diatri 30 mL Sol PO ONE (15:55)
[2017-08-05] MEDS ORDERED: Magnesium Hydroxide (MOM) 30 mL UDC GT PRN (16:53)
[2017-08-05] MEDS ORDERED: Albuterol Nebulizer 2.5mg/3mL HHN PRN (16:53)
[2017-08-05] MEDS ORDERED: CALCIUM CARBONATE GT SCH (17:00)
[2017-08-05] MEDS ORDERED: VITAMIN D3 GT SCH (17:00)
[2017-08-05] MEDS ORDERED: Calcium Carb/Vit D 500 mg/200 U Tab GT SCH (18:21)
--- NOTE | 2017-08-05 18:31 | Consultation ---
DATE OF CONSULTATION: 08/05/2017 REQUESTING PHYSICIAN: Dr. Rasmussen. REASON FOR CONSULTATION: Dysphagia with G-tube malfunction. HISTORY OF PRESENT ILLNESS: An 81-year-old female with fdc resident, admitted for G-tube malfunction and dysphagia. We were asked to evaluate the patient for this reason. The patient is a poor historian and further history is obtained from medical chart and computer records. PAST MEDICAL HISTORY: Notable for old stroke, hypertension, hyperlipidemia, Parkinson's disease, osteoporosis, diabetes mellitus and hypertension. ALLERGIES: None. MEDICATIONS: Here are IV fluids. SOCIAL HISTORY: shelter resident. Unknown tobacco, alcohol, or drug status. FAMILY HISTORY: Noncontributory. REVIEW OF SYSTEMS: Negative. PHYSICAL EXAMINATION: VITAL SIGNS: Temperature 98.1, blood pressure is 150/90, pulse of 86, respirations 22, O2 sat 94%. GENERAL: The patient is well-developed, well-nourished female in no acute distress. HEENT: Sclerae nonicteric. Oropharynx is clear. CARDIOVASCULAR: Regular rate and rhythm. LUNGS: Clear to auscultation bilaterally. ABDOMEN: Soft, nontender. Intact replacement type G-tube. EXTREMITIES: No edema. RECTAL: Deferred. LABORATORY DATA: WBC 11.5, hemoglobin 13.4, platelet count is 363. INR is 1.75. Creatinine is 0.6. Liver enzymes normal, alkaline phosphatase mildly elevated at 130, albumin 3.5. IMPRESSION: 1. Dysphagia with G-tube malfunction. 2. Dementia. 3. Old stroke. 4. Leukocytosis, rule out sepsis. 5. Diabetes mellitus. 6. Hypertension. RECOMMENDATIONS: 1. We will replace G-tube at bedside. 2. G-tube care. 3. Further recommendations following G-tube replacement. 4. Monitor labs. 5. Continue current medications. Thank you Dr. Rasmussen for involving us in the care of your patient. If you have any further questions, please call us. JOB# [id number]
--- NOTE | 2017-08-05 19:40 | Operative Report ---
DATE OF SURGERY: 08/05/2017 PROCEDURE: G-tube replacement. DESCRIPTION OF PROCEDURE: The procedure took place at the bedside at the Medical/Surgical unit of [facility]. The patient was kept in a supine position. The existing G-tube was removed after its inner balloon tip was deflated using a syringe. Using the same gastrocutaneous fistula site, a new 20-Tristanian replacement G-tube was inserted into the stomach. Its inner balloon tip was inflated using 15 mL of sterile water. The outer bumper was placed as close to the skin as possible. Overlying dressing was placed. The tip was noted to be in good position. The patient tolerated the procedure well. No complications are anticipated. RECOMMENDATIONS: 1. May use new G-tube for water flushes and medications. 2. Tube feedings to be started later on once position confirmed in the stomach by Gastrografin KUB. Thank you, Dr. Rasmussen for involving us in the care of your patient. If you have any further questions, please call us. JOB# [id number] MATT
[2017-08-06 05:08] LABS: % BASOPHILS 0.2 % (0.0-2.0); % EOSINOPHILS 3.8 % (0.0-5.0); % LYMPHOCYTES 23.4 % (20.0-50.0); % MONOCYTES 4.7 % (2.0-10.0); % NEUTROPHILS 67.9 % (40.0-80.0); HEMOGLOBIN 12.9 gm/dL (12-16); MEAN CELL VOLUME 88.2 fl (81-100); MEAN PLATELET VOLUME 7.4 fl; NEUTROPHILE ABSOLUTE 6.5 Th/cmm (1.8-8.0); PLATELET COUNT 346 Th/cmm (150-400); RED BLOOD COUNT 4.31 Mil/cmm (3.80-5.20); RED CELL DISTRIBUTION WIDTH 13.4 % (11.5-20.0); WHITE BLOOD COUNT 9.7 Th/cmm (4.8-10.8)
[2017-08-06 05:24] LABS: ALB/GLOB RATIO 0.8 (1.0-1.8); ALKALINE PHOSPHATASE 118 U/L (34-104); ANION GAP 9.8 (7.0-16.0); BILIRUBIN,TOTAL 0.6 mg/dL (0.3-1.0); BUN - UREA NITROGEN 17 mg/dL (7-25); BUN/CREATININE RATIO 28.3; CALCIUM SERUM 8.6 mg/dL (8.6-10.3); CARBON DIOXIDE 24.7 mEq/L (21.0-31.0); CHLORIDE 105 mEq/L (98-107); CREATININE - SERUM 0.6 mg/dL (0.6-1.2); GLUCOSE 90 mg/dL (70-105); POTASSIUM SERUM 4.5 mEq/L (3.5-5.1); SGOT 25 U/L (13-39); SGPT/ALT 29 U/L (7-52); SODIUM SERUM 135 mEq/L (136-145)
--- NOTE | 2017-08-06 08:02 | Diagnostic Imaging Report ---
Exam: Gastrostomy tube placement. Findings: After the injection of contrast material into the gastrostomy tube there is normal opacification stomach. There is evidence for extravasation of contrast material most likely superficially on the skin surface. Clinical correlation recommended. IMPRESSION: Gastrostomy tube in the stomach Superficial extravasation of contrast material most likely in the abdominal wall.
--- NOTE | 2017-08-06 08:50 | History and Physical ---
History of Present Illness - HPI Chief Complaint: G tube dysfunction. HPI: This is a patient that I follow at a SNF, I received a call that G-tube was liking, order to transfer to ER was done. Vital Signs: Last Vital Signs Temp 98.6 F 08/06/17 04:00 Pulse 77 08/06/17 06:57 Resp 20 08/06/17 06:57 BP 157/89 08/06/17 04:00 Pulse Ox 97 08/06/17 06:57 Past Medical History Cardiovascular: Report: CAD, CHF, HTN Pulmonary: Report: No Pertinent Hx PIERCING SPECIALIST: Report: Dementia GI: Report: Other (Dysphagia PEG in place.) Psych: Report: Psychosis Musculoskeletal: Report: Weakness, Stiffness (Funtional Quadriplegia), Other Rheumatologic: Report: No pertinent Hx Infectious Disease: Report: No Pertinent Hx (Frequents UTI) Renal/: Report: No Pertinent Hx Endocrine: Report: No Pertinent Hx Dermatology: Report: No Pertinent Hx - Past Surgical History Past Surgical History: No pertinent Hx Family Medical History - Family Member Mother History Unknown: Yes Social History Smoke: No Alcohol: None Drugs: None Lives: [place] Domestic Violence: Negative - Medications Home Medications: Home Medication Medication Instructions Recorded Type Magnesium Hydroxide [Milk of 30 ml GT HS PRN 10/24/16 History Magnesia] Vit C/Ascorbate Ca/Ascorb Sod 500 mg GT DAILY 10/24/16 History [Vitamin C 500 mg/15 ml Liquid] cloNIDine HCl [Catapres] 0.1 mg GT Q12H PRN 10/24/16 History Carbidopa/Levodopa 25/100 mg 1 tab GT QID #0 tab 10/28/16 Rx [Sinemet 25mg-100 mg] Latanoprost 0.005% Ophth Soln 1 drop EACH EYE HS #0 drops 10/28/16 Rx [Xalatan 0.005% Ophth Soln] Acetaminophen [Tylenol 650 mg GT Q4H PRN MDD 3gm in 24hrs 01/15/17 History 650mg/20.3mL Suspension] Acetaminophen [Tylenol Extra 1,000 mg PO Q4HR PRN 01/15/17 History Strength] Bisacodyl [Dulcolax 10 Mg Supp] 10 mg RC DAILY PRN 01/15/17 History Fleet Enema [Fleet Enema] 135 ml RC Q48H PRN 01/15/17 History Multivitamin w/ Minerals 15 ml GT DAILY 01/15/17 History [Theragran M] Sennosides A and B [Senna] 17.2 mg GT HS 01/15/17 History Albuterol Nebulizer 2.5mg/3mL 2.5 mg IH Q6HR PRN 08/05/17 History [Albuterol Neb UD*] Amino Acids/Protein Hydrolys 30 ml GT BID 08/05/17 History [Pro-Stat Sugar Free Awc 887 ml] Aspirin [Aspirin Chewable] 81 mg GT DAILY 08/05/17 History Calcium Carbonate/Vitamin D3 1 tab GT BID 08/05/17 History [Calcium 500 + D Tablet] Collagenase Clostridium Hist. 1 appl TP DAILY 08/05/17 History [Santyl] Promethazine DM 6.25/15mg-5mL 5 ml GT Q6H PRN 08/05/17 History [Phenergan DM 6.25/15mg-5 mL] - Allergies Allergies/Adverse Reactions: Allergies Allergy/AdvReac Type Severity Reaction Status Date / Time No Known Allergies Allergy Verified 10/24/16 15:58 Review of Systems - Review of Systems Constitutional: Report: Weakness, Other (Patient non Verbal, non ambulatory) Eyes: Report: No Significant ENT: Report: No Significant Respiratory: Report: No Significant Cardiovascular: Report: No Significant Gastrointestinal: Report: Other (PEG liking) Genitourinary: Report: No Significant Musculoskeletal: Report: No Significant Skin: Report: No Significant Neurological: Report: No Significant Physical Exam - Physical Exam HEENT: Report: Ears Nose Throat within normal limits Neck: Report: Within normal limits Cardiovascular Systems: Report: Regular, Rate and Rhythm Respiratory: Report: Breath Sounds are within normal limits Abdomen: Report: Non-tender to palpation, PEG site is clean Back: Report: Inspection of back is within normal limits. Extremities: Report: Extremities are contracted Skin: Report: Color of skin is within normal limits Neuro/Psych: Report: Weakness or sensory loss noted. (Non Verbal) - Lab Results All Lab Results last 24 hours: Laboratory Results - last 24 hr 08/05/17 08/06/17 08/06/17 15:00 04:42 04:42 WBC 9.7 RBC 4.31 Hgb 12.9 Hct 38.0 L MCV 88.2 MCH 30.0 MCHC Differential 34.0 RDW 13.4 Plt Count 346 MPV 7.4 Neutrophils % 67.9 Lymphocytes % 23.4 Monocytes % 4.7 Eosinophils % 3.8 Basophils % 0.2 Sodium 135 L Potassium 4.5 Chloride 105 Carbon Dioxide 24.7 Anion Gap 9.8 BUN 17 Creatinine 0.6 Est GFR ( Amer) TNP Est GFR (Non-Af Amer) TNP BUN/Creatinine Ratio 28.3 Glucose 90 Calcium 8.6 Total Bilirubin 0.6 AST 25 ALT 29 Alkaline Phosphatase 118 H Total Protein 7.1 Albumin 3.2 L Globulin 3.9 Albumin/Globulin Ratio 0.8 L Urine Source MIDSTREAM Urine Color YELLOW Urine Clarity HAZY Urine pH 6.5 Ur Specific [place] 1.015 Urine Protein 30 H Urine Glucose (UA) NEGATIVE Urine Ketones NEGATIVE Urine Blood NEGATIVE Urine Nitrate NEGATIVE Urine Bilirubin NEGATIVE Urine Urobilinogen 0.2 Ur Leukocyte Esterase NEGATIVE Urine RBC NONE SEEN Urine WBC NONE SEEN Ur Epithelial Cells MODERATE Urine Bacteria NONE SEEN - Assessment Assessment: Current Active Problems Problem Status Onset MALFUNCTION OF GASTRIC FEEDING TUBE Acute Patient is awake, eyes open, non following verbal commands, non verbal, bed bound. Dx: G-tube malfuntion, Dementia, S/P CVA, HTN, Dysphagia, Funtional Quadriplegia, Bed bound. - Plan Plan: Peg was replaced by GI.
[2017-08-06] MEDS ORDERED: Multivitamin w/ Minerals 15 mL UDC GT SCH (09:00)
[2017-08-06] MEDS ORDERED: Aspirin 81mg Chewable Tab GT SCH (09:00)
== END 2017-08-06 19:25 | disposition home or self-care (01) | DRG 393 ==
LOC: ER 13:19 → MSI 14:35
PROVIDERS: ADMIT General Practice; ATTEND General Practice
PROC: 0D20XUZ Change Feeding Device in Upper Intestinal Tract, External Approach (ICD-10-PCS; principal; 2017-08-05)
DX: K94.23 Gastrostomy malfunction (principal); R53.2 Functional quadriplegia; G20 Parkinson's disease; F03.90 Unspecified dementia, unspecified severity, without behavioral disturbance, psychotic disturbance, mood disturbance, and anxiety; E87.1 Hypo-osmolality and hyponatremia; I11.0 Hypertensive heart disease with heart failure; I50.9 Heart failure, unspecified; R13.10 Dysphagia, unspecified; E78.5 Hyperlipidemia, unspecified; M81.0 Age-related osteoporosis without current pathological fracture; E86.0 Dehydration; D72.829 Elevated white blood cell count, unspecified; Y83.8 Other surgical procedures as the cause of abnormal reaction of the patient, or of later complication, without mention of misadventure at the time of the procedure; Y92.89 Other specified places as the place of occurrence of the external cause; F29 Unspecified psychosis not due to a substance or known physiological condition; Z79.82 Long term (current) use of aspirin; Z74.01 Bed confinement status; Z86.73 Personal history of transient ischemic attack (TIA), and cerebral infarction without residual deficits; Z83.3 Family history of diabetes mellitus; Z82.49 Family history of ischemic heart disease and other diseases of the circulatory system
CPT/HCPCS: 36415-UA; 71010-TC; 74000-TC; 80053-TC; 80061-TC; 81001-TC; 82550-TC; 83605; 83880-TC; 84484-TC; 85025-TC; 85610-TC; 85730-TC; 93005; 94760; A4217; J7030; Z7610

== ENCOUNTER 2017-12-16 00:03 | Inpatient (IN) | payer MEDICARE, MEDICAID ==
[2017-12-16] MEDS ORDERED: Pantoprazole 40 mg EC Tab PO STA (00:23)
[2017-12-16 00:43] LABS: % BASOPHILS 0.2 % (0.0-2.0); % EOSINOPHILS 5.1 % (0.0-5.0); % LYMPHOCYTES 27.7 % (20.0-50.0); EOSINOPHILE ABSOLUTE 0.5 Th/cmm (0.1-0.4); HEMATOCRIT 39.2 % (41.0-60); HEMOGLOBIN 12.8 gm/dL (12-16); LYMPHOCYTE ABSOLUTE 2.8 Th/cmm (1.5-3.0); MEAN CELL VOLUME 87.8 fl (81-100); MEAN CORPUSCULAR HEMOGLOBIN 28.6 pg (27.0-31.0); MEAN CORPUSCULAR HGB CONC 32.6 pg (28.0-36.0); MEAN PLATELET VOLUME 7.9 fl; MONOCYTE ABSOLUTE 0.4 Th/cmm (0.3-1.0); NEUTROPHILE ABSOLUTE 6.3 Th/cmm (1.8-8.0); PLATELET COUNT 299 Th/cmm (150-400); RED BLOOD COUNT 4.46 Mil/cmm (3.80-5.20); RED CELL DISTRIBUTION WIDTH 13.9 % (11.5-20.0)
[2017-12-16 00:56] LABS: INR 0.99 (0.5-1.4); PROTHROMBIN TIME (TEST) 10.3 SECONDS (9.5-11.5)
[2017-12-16 01:02] LABS: ALB/GLOB RATIO 0.9 (1.0-1.8); ALBUMIN 3.3 gm/dL (3.7-5.3); ALKALINE PHOSPHATASE 102 U/L (34-104); ANION GAP 12.6 (7.0-16.0); BILIRUBIN,TOTAL 0.3 mg/dL (0.3-1.0); BUN - UREA NITROGEN 34 mg/dL (7-25); CARBON DIOXIDE 25.8 mEq/L (21.0-31.0); CHLORIDE 108 mEq/L (98-107); CREATININE - SERUM 0.6 mg/dL (0.6-1.2); GLUCOSE 105 mg/dL (70-105); POTASSIUM SERUM 4.4 mEq/L (3.5-5.1); SGOT 19 U/L (13-39); SGPT/ALT 9 U/L (7-52); SODIUM SERUM 142 mEq/L (136-145)
--- NOTE | 2017-12-16 02:12 | Transfer Summary ---
DATE OF TRANSFER: 12/16/2017 ADDITIONAL DIAGNOSIS: That patient had unspecified dementia without behavioral disturbances, unspecified sequelae, of unspecified cerebrovascular disease, essential hypertension, quadriplegia, unspecified dysphagia following for an unspecified cerebrovascular disease, encounter for attention to gastrostomy Parkinson's disease, muscle weakness, generalized contractures, unspecified dysphagia, unspecified gastrostomy malfunction, unspecified glaucoma. The patient is getting the usual G-tube feeding and I believe the aspirin should be stopped on this patient and Protonix or Prilosec or any other PPI, Prevacid should be given to prevent any stress ulcers for this patient. Otherwise, the usual other medications that has been given should be continued for the patient. Physical therapy, gait therapy for the abnormality of gait should be continued and we will report the lab results to Dr. Coley and he will decide about the further plan of treatment on the patient. Otherwise, the patient does not have anything significant seen. JOB# [id number]
--- NOTE | 2017-12-16 02:19 | ER Physician Documentation ---
DATE OF SERVICE: 12/16/2017 EMERGENCY ROOM EVALUATION AND TREATMENT The patient was referred by Dr. Coley from [facility] and [facility]. The reason being that there was some brown drainage from the G-tube the patient herself cannot speak any, she is in fairly sleepy status and we checked the area at the G-tube site. There was slight brownish discharge and discharge was cleared and after that there was no discharge at all of any kind. There is no evidence of any bleeding noted. There is no occult blood noted over that. We will get some labs done to see if there is any drop in hematocrit to see if there is any PT, PTT has been changed, but the patient should get a Protonix daily over at alf. The patient in all probability may not need any admission over here. The patient's history of present illness is essentially same as above. REVIEW OF SYSTEMS: Cannot be evaluated. On examination, the patient appears to be resting, sleeping and not in any acute cardiorespiratory distress. The patient does not speak. The patient is contracted and bedbound. PHYSICAL EXAMINATION: VITAL SIGNS: Vital signs show temperature 97.6, pulse is 75, respirations 24, blood pressure 103/53. GENERAL: Not in any acute cardiorespiratory distress. HEENT: Jugular venous pressure essentially appears to be normal. Eyes normal conjunctivae are pink, sclerae white. HEENT is normal. As far as G-tube malfunctioning, according to the nurse no malfunction was detected, but we will recheck again and see if there is any malfunction. If there is any malfunctioning then the patient might need admission to the hospital. If no malfunctioning then the patient might not need it, but we will leave it to Dr. Coley to decide. 40 mg, Protonix has been given to the patient. CHEST: Clear. Trachea being central. Fairly good air entry in both lungs. Heart sounds appears to be normal. ABDOMEN: Soft, benign and negative and there is brownish discharge. It does not look like any occult blood coming out. In conclusion, the patient has some brown discharge from the G-tube, nothing major that is seen. The patient was dressed up again and connected again back to its usual place. The reason for transfer was G-tube feeding gastrostomy malfunction, do not see that. We will recheck it again. She has contractures Parkinson's disease, hypertension, muscle weakness. There is a G-tube ____ is present. Total care was demanded. He has dependent contacts on ____. Hypertension. The patient has dementia, behavioral disturbances, 100 mL of a G-tube or residual things was seen. The labs that were done at the alf showed a BUN of 31, creatinine of 0.64, potassium of 4.4, sodium 137, chloride of 103, CO2 of 27. We have also ordered some lab workup to see if there is anything else happening. LFTs are normal. Albumin is low at 3. The patient is more caloric-protein intake diet. Total protein is found to be 6.7 and patient's white count was within normal limits. Hemoglobin, hematocrit was also all normal, 12.5, 39.4, neutrophils 60.6. In conclusion, the patient's FINAL DIAGNOSES: Questionable G-tube malfunction and status post CVA, Parkinson's disease, osteoporosis, quadriplegia, dementia, history of PEG, Parkinson's disease, etc. Labs have been ordered. Once lab comes, we will look at it and then may the decision and report it to Dr. Coley and let him make the decision what he wants to do. JOB# [id number]
[2017-12-16] MEDS ORDERED: Albuterol Nebulizer 2.5mg/3mL HHN PRN (13:24)
[2017-12-16] MEDS ORDERED: Acetaminophen 500 MG TAB GT PRN (13:24)
[2017-12-16] MEDS ORDERED: Fleet Enema 135 mL RC PRN (13:25)
[2017-12-16] MEDS ORDERED: Promethazine DM 6.25/15mg-5mL 5 ML SYR PO PRN (13:27)
[2017-12-16] MEDS ORDERED: Non-Formulary Item 1 EA (Amino Acids/Protein Hydrolys [Pro-Stat Awc Liquid] 30 ML) GT SCH (14:00)
--- NOTE | 2017-12-16 14:52 | History and Physical ---
History of Present Illness - HPI Chief Complaint: drainage from peg HPI: This is a 82 year old female who is a resident of [facility] due to drainage from peg site Vital Signs: Last Vital Signs Temp 97.5 F 12/16/17 14:00 Pulse 72 12/16/17 14:00 Resp 18 12/16/17 14:13 BP 170/84 12/16/17 14:00 Pulse Ox 97 12/16/17 14:00 Past Medical History Other History: cva parkinsons osteoporosis quadriplegia dementia Family Medical History - Family Member Mother History Unknown: Yes Social History Smoke: No Alcohol: None Drugs: None Lives: [facility] - Medications Home Medications: Home Medication Medication Instructions Recorded Type Acetaminophen [Tylenol Extra 1,000 mg GT Q4HR PRN 12/16/17 History Strength] Acetaminophen [Tylenol] 650 mg GT Q4HR PRN 12/16/17 History Albuterol Nebulizer 2.5mg/3mL 2.5 mg IH Q6HR PRN 12/16/17 History [Albuterol Neb UD*] Amino Acids/Protein Hydrolys 30 ml GT TID 12/16/17 History [Pro-Stat Sugar Free Awc 887 ml] Aspirin [Aspirin Chewable] 81 mg GT DAILY 12/16/17 History Bisacodyl [Dulcolax 10 Mg Supp] 10 mg RC DAILY PRN 12/16/17 History Calcium Carbonate/Vitamin D3 1 tab GT BID 12/16/17 History [Calcium 500 + D Tablet] Carbidopa/Levodopa [Sinemet 25-100 1 each GT QID 12/16/17 History mg Tablet] Clonidine HCl [Catapres] 0.1 mg GT Q12H PRN 12/16/17 History Fleet Enema [Fleet Enema] 135 ml RC Q48H PRN 12/16/17 History Latanoprost 0.005% Ophth Soln 1 drop EACH EYE HS 12/16/17 History [Xalatan 0.005% Ophth Soln] Magnesium Hydroxide [Milk of 30 ml GT HS PRN 12/16/17 History Magnesia] Multivitamin w/ Minerals 15 ml GT DAILY 12/16/17 History [Theragran M] Ondansetron [Zofran ODT] 4 mg GT Q6HR PRN 12/16/17 History Promethazine DM 6.25/15mg-5mL 5 ml PO Q6H PRN 12/16/17 History [Phenergan DM 6.25/15mg-5 mL] Sennosides/Docusate Sodium [Senna 2 each GT HS 12/16/17 History Laxative Tablet] Vit C/Ascorbate Ca/Ascorb Sod 500 mg GT DAILY 12/16/17 History [Vitamin C 500 mg/15 ml Liquid] - Allergies Allergies/Adverse Reactions: Allergies Allergy/AdvReac Type Severity Reaction Status Date / Time No Known Allergies Allergy Verified 10/24/16 15:58 Review of Systems - Review of Systems Constitutional: Report: Weakness Eyes: Report: No Significant ENT: Report: No Significant Respiratory: Report: No Significant Cardiovascular: Report: No Significant Gastrointestinal: Report: No Significant Neurological: Report: Weakness Physical Exam - Physical Exam HEENT: Report: Ears Nose Throat within normal limits Neck: Report: Within normal limits Cardiovascular Systems: Report: +s1/s2 noted Respiratory: Report: Breath Sounds are within normal limits Abdomen: Report: Non-tender to palpation Skin: Report: Warm, Dry Neuro/Psych: Report: Weakness or sensory loss noted. - Assessment Assessment: gt malfunction quadriplegia hx cva parkinsons dementia - Plan Plan: gi consultation ivf for hydration abdominal u/s continue current orders
--- NOTE | 2017-12-16 15:00 | History & Physical ---
ADMIT DATE: 12/16/2017 CHIEF COMPLAINT: Leaking G-tube site. HISTORY OF PRESENT ILLNESS: The patient is an 82-year-old female with a past medical history of dementia, Parkinson disease, hypertension, dysphagia, G-tube placement, contractures, was sent from nursing facility for discharge from G-tube site. PAST MEDICAL HISTORY: Includes dementia, Parkinson's disease, hypertension, contractures, dysphagia, and G-tube placement. ALLERGIES: NKDA. MEDICATIONS: See medication reconciliation sheet. SOCIAL HISTORY: The patient lives at nursing facility. No history of smoking, alcohol, or drug use. FAMILY HISTORY: Not available. REVIEW OF SYSTEMS: Unable to give any history, but as per the record, the patient has discharge from the G-tube site. PHYSICAL EXAMINATION: VITAL SIGNS: Currently shows temperature is 97.1 degrees Fahrenheit, pulse 68, respiration 16, and blood pressure 146/53. GENERAL: The patient is comfortable lying in the bed, not in acute distress, obese. HEENT: Head is normocephalic, atraumatic. Oral cavity moist, pink tongue. Eyes, no pallor, no icterus. PERRLA. EOMI. NECK: Supple, no JVD, no carotid bruit. Trachea in midline. CHEST: Bilateral breath sounds. No crackles or wheezing. HEART: S1, S2 within normal limits. Regular rhythm. No murmur, no gallop. ABDOMEN: Soft, nontender, and nondistended. Bowel sounds present. G-tube site has mild leak from the site. No erythema. The discharge is cloudy. EXTREMITIES: No cyanosis, no clubbing, no edema. On the left big toe, the patient has unstageable ulcer, might be hematoma blister. CENTRAL NERVOUS SYSTEM: Opens her eyes, but unable to communicate. LABORATORY DATA: Current lab shows WBC of 10,000, hemoglobin 12.8, hematocrit 39.2, and platelets are 299,000, neutrophils 63%. INR 0.9. Sodium is 142, potassium 4.4, chloride 108, bicarbonate is 25.8, BUN is 34, creatinine 0.6, and glucose is 105. IMPRESSION: 1. G-tube leak. 2. Left big toe lesion likely blister versus hematoma, rule out peripheral artery disease.. 3. Parkinson's disease. 4. Dementia. 5. Contractures. 6. Parkinson disease. 7. Hypertension. 8. Glaucoma. 9. Dysphagia. RECOMMENDATIONS AND PLAN: GI consultation with Dr. Pacheco and Vascular Surgery consultation with Dr. Dial. We will do arterial ultrasound of the left leg and wound care. Continue home medications. JOB# [id number]
--- NOTE | 2017-12-16 15:17 | Consultation ---
DATE OF CONSULTATION: 12/16/2017 SURGICAL CONSULTATION REFERRING PHYSICIAN: Dr. Coley. REASON FOR CONSULTATION: Malfunctioning G-tube. Thank you for referring this patient to me. HISTORY OF PRESENT ILLNESS: This is an 82-year-old female who comes from a skilled nursing with question of malfunctioning G-tube. She has a G-tube in place and apparently there was some leakage, which prompted the admission. Laboratory studies show CBC to be essentially normal, chemistry likewise. PHYSICAL EXAMINATION: The patient is morbidly obese. She has a G-tube in place with no evidence of leak or maceration surrounding tube site. RECOMMENDATIONS: We will observe further before any recommendation will be done. JOB# [id number]
[2017-12-16] MEDS: Multivitamin w/ Minerals Tab GT SCH (16:00)
[2017-12-16] MEDS: Calcium Carb/Vit D 500 mg/200 U Tab GT SCH (18:00)
[2017-12-16] MEDS: D5-0.45NS 1,000 ML IV SCH (20:32)
[2017-12-16] MEDS: Docusate Sodium/Senna Tab GT SCH (20:42)
[2017-12-16] MEDS ORDERED: Magnesium Hydroxide (MOM) 30 mL UDC GT PRN (21:00)
--- NOTE | 2017-12-16 22:49 | Consultation ---
DATE OF CONSULTATION: 12/16/2017 GASTROENTEROLOGY CONSULTATION REQUESTING PHYSICIAN: Dr. Nabeel Goyal. REASON FOR CONSULTATION: G-tube malfunction. HISTORY OF PRESENT ILLNESS: An 82-year-old female, who is a shelter resident, admitted for drainage from G-tube insertion site. There is some old crusted blood in this area. We were asked by the patient for this reason, the patient is nonverbal and further history is obtained from medical chart, computer records. PAST MEDICAL HISTORY: Notable for old stroke, Parkinson's, osteoporosis, quadriplegia and dementia. SOCIAL HISTORY: No known tobacco, alcohol, or drugs. FAMILY HISTORY: Noncontributory. REVIEW OF SYSTEMS: A comprehensive 12-point review of systems conducted and is only positive for those signs and symptoms present in the history of present illness. MEDICATIONS: Here are Tylenol, albuterol, baby aspirin, Dulcolax p.r.n., calcium with vitamin D, Sinemet, IV fluids, latanoprost drops, milk of magnesia, Zofran, Phenergan, senna, and Fleet enema p.r.n. PHYSICAL EXAMINATION: VITAL SIGNS: Temperature of 96.8, blood pressure 180/73, respirations 104, and the patient's O2 sat noted. GENERAL: The patient is a well-developed, chronically ill-appearing elderly female who is nonverbal, in no acute distress. HEENT: Sclerae nonicteric. Oropharynx is clear. CARDIOVASCULAR: Regular rate and rhythm. LUNGS: Clear to auscultation bilaterally. ABDOMEN: Soft, nontender, nondistended. Intact G-tube with mild leakage from the G-tube insertion site. The G-tube itself is 24-Italian and large in caliber. LABORATORY DATA AND IMAGING: WBC is 10.0, hemoglobin 12.8, and platelet count is 299. INR is normal. Chemistries including liver enzymes and creatinine are normal. Albumin 3.3. IMPRESSION: 1. Dysphagia with G-tube malfunction, possibly from mild leak from G-tube insertion site. The gastrocutaneous fistula may be slightly larger in comparison to the G-tube caliber. 2. Possible mild ileus. 3. Old stroke with Parkinson's and dementia. 4. History of hypertension and contractured stature. RECOMMENDATIONS: 1. Will obtain an upper GI series via the G-tube to confirm the G-tube itself is in satisfactory position and there is no obvious leak or bowel obstruction. 2. If upper GI series is acceptable, then consider restarting G-tube feedings and advancing rate as tolerated. 3. G-tube care. 4. Monitor labs. 5. May continue medications per G-tube. Thank you, Dr. Nabeel Goyal for involving us in the care of your patient. If you have any further questions, please call us. JOB# [id number] [id number]
[2017-12-17 06:16] LABS: % BASOPHILS 0.6 % (0.0-2.0); % EOSINOPHILS 5.4 % (0.0-5.0); % LYMPHOCYTES 29.6 % (20.0-50.0); % MONOCYTES 5.1 % (2.0-10.0); % NEUTROPHILS 59.3 % (40.0-80.0); BASOPHILE ABSOLUTE 0.1 Th/cumm (0-0.2); EOSINOPHILE ABSOLUTE 0.5 Th/cmm (0.1-0.4); HEMOGLOBIN 13.9 gm/dL (12-16); LYMPHOCYTE ABSOLUTE 2.6 Th/cmm (1.5-3.0); MEAN PLATELET VOLUME 8.1 fl; MONOCYTE ABSOLUTE 0.4 Th/cmm (0.3-1.0); NEUTROPHILE ABSOLUTE 5.2 Th/cmm (1.8-8.0); PLATELET COUNT 277 Th/cmm (150-400); RED BLOOD COUNT 4.77 Mil/cmm (3.80-5.20); RED CELL DISTRIBUTION WIDTH 13.7 % (11.5-20.0); WHITE BLOOD COUNT 8.8 Th/cmm (4.8-10.8)
[2017-12-17 06:26] LABS: ANION GAP 10.6 (7.0-16.0); BUN - UREA NITROGEN 22 mg/dL (7-25); CALCIUM SERUM 9.2 mg/dL (8.6-10.3); CARBON DIOXIDE 25.5 mEq/L (21.0-31.0); CHLORIDE 104 mEq/L (98-107); CREATININE - SERUM 0.6 mg/dL (0.6-1.2); GLUCOSE 117 mg/dL (70-105); POTASSIUM SERUM 4.1 mEq/L (3.5-5.1); SODIUM SERUM 136 mEq/L (136-145)
--- NOTE | 2017-12-17 08:25 | Diagnostic Imaging Report ---
Left lower extremity arterial Doppler study HISTORY: Pain COMPARISON: None Technique: Longitudinal and transverse sonographic images of the left lower extremity arteries were obtained with doppler analysis. FINDINGS: Exam of the left side demonstrates primarily triphasic and biphasic flow throughout the left lower extremities with mild to moderate atherosclerotic vascular disease. No significant decreased velocities. No evidence of occlusion. Left CRISTAL is 1.0. IMPRESSION: Mild to moderate atherosclerotic vascular disease throughout the left lower extremity arterial system. No evidence of occlusion. If necessary CT angiography follow up may also be obtained.
[2017-12-17] MEDS: Calcium Carb/Vit D 500 mg/200 U Tab GT SCH ×2 (09:34→17:25)
[2017-12-17] MEDS: Aspirin 81mg Chewable Tab GT SCH (09:34)
[2017-12-17] MEDS: Multivitamin w/ Minerals Tab GT SCH (09:35)
--- NOTE | 2017-12-17 10:27 | Diagnostic Imaging Report ---
Upper GI with Gastrografin HISTORY: G-tube confirmation COMPARISON: None FINDINGS: Exam is limited due to patient positioning. Merchant Miller view demonstrates a nonspecific bowel gas pattern. The second image demonstrates contrast opacification of the stomach and small bowel loops. There is also enteric contrast which appears to be outside the patient. IMPRESSION: Intraluminal confirmation of patient's percutaneous gastric feeding tube. Enteric contrast appears to be outside the patient. A leak along the entrance site of the G-tube cannot be excluded. Please correlate patient's clinical findings.
--- NOTE | 2017-12-17 13:32 | Infectious Disease Prog Note ---
Infectious Disease Subjective - Review of Systems Service Date: 12/17/17 Subjective: no new change,, mild leak from G tube site. Infectious Disease Objective - Results Result Diagrams: 12/17/17 05:51 12/17/17 05:51 Recent Labs: Laboratory Last Values WBC 8.8 Th/cmm (4.8-10.8) 12/17/17 05:51 RBC 4.77 Mil/cmm (3.80-5.20) 12/17/17 05:51 Hgb 13.9 gm/dL (12-16) 12/17/17 05:51 Hct 42.0 % (41.0-60) 12/17/17 05:51 MCV 88.0 fl (81-100) 12/17/17 05:51 MCH 29.0 pg (27.0-31.0) 12/17/17 05:51 MCHC Differential 33.0 pg (28.0-36.0) 12/17/17 05:51 RDW 13.7 % (11.5-20.0) 12/17/17 05:51 Plt Count 277 Th/cmm (150-400) 12/17/17 05:51 MPV 8.1 fl 12/17/17 05:51 Neutrophils % 59.3 % (40.0-80.0) 12/17/17 05:51 Lymphocytes % 29.6 % (20.0-50.0) 12/17/17 05:51 Monocytes % 5.1 % (2.0-10.0) 12/17/17 05:51 Eosinophils % 5.4 % (0.0-5.0) H 12/17/17 05:51 Basophils % 0.6 % (0.0-2.0) 12/17/17 05:51 PT 10.3 SECONDS (9.5-11.5) 12/16/17 00:35 INR 0.99 (0.5-1.4) 12/16/17 00:35 Sodium 136 mEq/L (136-145) 12/17/17 05:51 Potassium 4.1 mEq/L (3.5-5.1) 12/17/17 05:51 Chloride 104 mEq/L (98-107) 12/17/17 05:51 Carbon Dioxide 25.5 mEq/L (21.0-31.0) 12/17/17 05:51 Anion Gap 10.6 (7.0-16.0) 12/17/17 05:51 BUN 22 mg/dL (7-25) 12/17/17 05:51 Creatinine 0.6 mg/dL (0.6-1.2) 12/17/17 05:51 Est GFR ( Amer) TNP 12/17/17 05:51 Est GFR (Non-Af Amer) TNP 12/17/17 05:51 BUN/Creatinine Ratio 36.7 12/17/17 05:51 Glucose 117 mg/dL (70-105) H 12/17/17 05:51 Calcium 9.2 mg/dL (8.6-10.3) 12/17/17 05:51 Total Bilirubin 0.3 mg/dL (0.3-1.0) 12/16/17 00:35 AST 19 U/L (13-39) 12/16/17 00:35 ALT 9 U/L (7-52) 12/16/17 00:35 Alkaline Phosphatase 102 U/L (34-104) 12/16/17 00:35 Total Protein 7.0 gm/dL (6.0-8.3) 12/16/17 00:35 Albumin 3.3 gm/dL (3.7-5.3) L 12/16/17 00:35 Globulin 3.7 gm/dL 12/16/17 00:35 Albumin/Globulin Ratio 0.9 (1.0-1.8) L 12/16/17 00:35 - Physical Exam Vitals and I&O: Vital Signs Temp 96.2 F 12/17/17 08:00 Pulse 67 12/17/17 10:43 Resp 18 12/17/17 10:43 BP 155/73 12/17/17 08:00 Pulse Ox 98 12/17/17 10:43 Intake & Output 12/16/17 12/17/17 12/17/17 18:59 06:59 18:59 Intake Total 100 100 Balance 100 100 Weight (lbs) 73.936 kg 73.936 kg Intake: Oral 0 Tube Feeding 100 Other 100 Other: # Voids 2 3 Active Medications: Current Medications Acetaminophen (Tylenol 650mg/20.3ml Suspension) 650 mg GT Q4H PRN PRN Reason: Pain or Fever >101 Stop: 02/14/18 13:23 Acetaminophen (Tylenol Extra Strength) 1,000 mg GT Q4H PRN PRN Reason: Pain (Moderate) Stop: 02/14/18 13:23 Albuterol Sulfate (Albuterol 2.5mg/3ml Neb Ud) 2.5 mg HHN Q6HRT PRN PRN Reason: Shortness of Breath Stop: 02/14/18 13:23 Ascorbic Acid (Vitamin C) 500 mg GT DAILY JAYLEN Stop: 02/15/18 08:59 Last Admin: 12/17/17 09:34 Dose: 500 mg Aspirin (Aspirin Chewable) 81 mg GT DAILY JAYLEN Stop: 02/15/18 08:59 Last Admin: 12/17/17 09:34 Dose: 81 mg Bisacodyl (Dulcolax 10 Mg Supp) 10 mg RC DAILY PRN PRN Reason: Constipation Stop: 02/14/18 13:24 Calcium/Vitamin D (Oscal W/Vitamin D) 1 tab GT BID JAYLEN Stop: 02/14/18 16:59 Last Admin: 12/17/17 09:34 Dose: 1 tab Carbidopa/Levodopa (Sinemet 25mg-100 Mg) 1 tab GT QID JAYLEN Stop: 02/14/18 16:59 Last Admin: 12/17/17 13:05 Dose: 1 tab Dextrose/Sodium Chloride (D5-0.45ns) 1,000 mls @ 50 mls/hr IV .Q20H [facility] Stop: 02/14/18 13:44 Last Admin: 12/16/17 20:32 Dose: 50 mls/hr Latanoprost (Xalatan 0.005% Ophth Soln) 1 drop EACH EYE HS JAYLEN Stop: 02/14/18 20:59 Last Admin: 12/16/17 20:45 Dose: 1 drop Magnesium Hydroxide (Milk Of Magnesia) 30 ml GT HS PRN PRN Reason: Constipation Stop: 02/14/18 20:59 Ondansetron HCl (Zofran Odt) 4 mg SL Q6H PRN PRN Reason: Nausea Stop: 02/14/18 13:24 Promethazine HCl/Dextromethorphan (Phenergan Dm 6.25/15mg-5 Ml) 5 ml PO Q6H PRN PRN Reason: Cough Stop: 02/14/18 13:26 Sennosides (Senna Plus 50 Mg-8.6 Mg) 1 tab GT HS JAYLEN Stop: 02/14/18 20:59 Last Admin: 12/16/17 20:42 Dose: 1 tab Sodium Phosphate (Fleet Enema) 135 ml RC Q48H PRN PRN Reason: Constipation Stop: 02/14/18 13:24 General: no acute distress, well developed, well nourished HEENT: atraumatic, normocephalic, PERRLA Neck: supple, no thyromegaly Cardiovascular: S1S2, regular Lungs: clear to auscultation bilaterally, clear to percussion Abdomen: soft, other, no tender, no distended, no mass Extremities: no cyanosis, no clubbing, no edema Neurological: awake, alert - Procedures Procedures: Procedures Procedure Code Date CHANGE FEEDING DEVICE IN UP INTEST TRACT, PARASITOLOGY TEACHER APPROACH [id number] 08/05/17 CHANGE GASTROSTOMY TUBE 42414 10/24/16 Infectious Disease Assmt/Plan - Assessment Assessment: 1. G-tube leak. 2. Left big toe lesion likely blister versus hematoma, rule out peripheral artery disease.. 3. Parkinson's disease. 4. Dementia. 5. Contractures. 6. Parkinson disease. 7. Hypertension. 8. Glaucoma. 9. Dysphagia. - Plan Plan: Cpm as per consults.
[2017-12-17] MEDS: D5-0.45NS 1,000 ML IV SCH (16:53)
--- NOTE | 2017-12-17 18:48 | GI Progress Note ---
Subjective - Review of Systems Service Date: 12/17/17 Subjective: DELAYED NOTE ENTRY. PATIENT SEEN AND EXAMINED AT 1100. UGI SERIES NOTED. EVENTS NOTED. Objective - Results Result Diagrams: 12/17/17 05:51 12/17/17 05:51 Recent Labs: Laboratory Last Values WBC 8.8 Th/cmm (4.8-10.8) 12/17/17 05:51 RBC 4.77 Mil/cmm (3.80-5.20) 12/17/17 05:51 Hgb 13.9 gm/dL (12-16) 12/17/17 05:51 Hct 42.0 % (41.0-60) 12/17/17 05:51 MCV 88.0 fl (81-100) 12/17/17 05:51 MCH 29.0 pg (27.0-31.0) 12/17/17 05:51 MCHC Differential 33.0 pg (28.0-36.0) 12/17/17 05:51 RDW 13.7 % (11.5-20.0) 12/17/17 05:51 Plt Count 277 Th/cmm (150-400) 12/17/17 05:51 MPV 8.1 fl 12/17/17 05:51 Neutrophils % 59.3 % (40.0-80.0) 12/17/17 05:51 Lymphocytes % 29.6 % (20.0-50.0) 12/17/17 05:51 Monocytes % 5.1 % (2.0-10.0) 12/17/17 05:51 Eosinophils % 5.4 % (0.0-5.0) H 12/17/17 05:51 Basophils % 0.6 % (0.0-2.0) 12/17/17 05:51 PT 10.3 SECONDS (9.5-11.5) 12/16/17 00:35 INR 0.99 (0.5-1.4) 12/16/17 00:35 Sodium 136 mEq/L (136-145) 12/17/17 05:51 Potassium 4.1 mEq/L (3.5-5.1) 12/17/17 05:51 Chloride 104 mEq/L (98-107) 12/17/17 05:51 Carbon Dioxide 25.5 mEq/L (21.0-31.0) 12/17/17 05:51 Anion Gap 10.6 (7.0-16.0) 12/17/17 05:51 BUN 22 mg/dL (7-25) 12/17/17 05:51 Creatinine 0.6 mg/dL (0.6-1.2) 12/17/17 05:51 Est GFR ( Amer) TNP 12/17/17 05:51 Est GFR (Non-Af Amer) TNP 12/17/17 05:51 BUN/Creatinine Ratio 36.7 12/17/17 05:51 Glucose 117 mg/dL (70-105) H 12/17/17 05:51 Calcium 9.2 mg/dL (8.6-10.3) 12/17/17 05:51 Total Bilirubin 0.3 mg/dL (0.3-1.0) 12/16/17 00:35 AST 19 U/L (13-39) 12/16/17 00:35 ALT 9 U/L (7-52) 12/16/17 00:35 Alkaline Phosphatase 102 U/L (34-104) 12/16/17 00:35 Total Protein 7.0 gm/dL (6.0-8.3) 12/16/17 00:35 Albumin 3.3 gm/dL (3.7-5.3) L 12/16/17 00:35 Globulin 3.7 gm/dL 12/16/17 00:35 Albumin/Globulin Ratio 0.9 (1.0-1.8) L 12/16/17 00:35 - Physical Exam Vitals and I&O: Vital Signs Temp 96.8 F 12/17/17 12:00 Pulse 60 12/17/17 12:00 Resp 16 12/17/17 12:00 BP 137/64 12/17/17 12:00 Pulse Ox 95 12/17/17 12:00 Intake & Output 12/16/17 12/17/17 12/17/17 18:59 06:59 18:59 Intake Total 187 410 5143 Balance 766 000 2004 Weight (lbs) 73.936 kg 73.936 kg Intake: Intake, IV Amount 1000 D5-0.45NS 1,000 ml @ 50 1000 mls/hr IV .Q20H [facility] Rx#: [id number] Oral 0 Tube Feeding 100 Other 100 Other: # Voids 2 3 Active Medications: Current Medications Acetaminophen (Tylenol 650mg/20.3ml Suspension) 650 mg GT Q4H PRN PRN Reason: Pain or Fever >101 Stop: 02/14/18 13:23 Acetaminophen (Tylenol Extra Strength) 1,000 mg GT Q4H PRN PRN Reason: Pain (Moderate) Stop: 02/14/18 13:23 Albuterol Sulfate (Albuterol 2.5mg/3ml Neb Ud) 2.5 mg HHN Q6HRT PRN PRN Reason: Shortness of Breath Stop: 02/14/18 13:23 Ascorbic Acid (Vitamin C) 500 mg GT DAILY JAYLEN Stop: 02/15/18 08:59 Last Admin: 12/17/17 09:34 Dose: 500 mg Aspirin (Aspirin Chewable) 81 mg GT DAILY JAYLEN Stop: 02/15/18 08:59 Last Admin: 12/17/17 09:34 Dose: 81 mg Bisacodyl (Dulcolax 10 Mg Supp) 10 mg RC DAILY PRN PRN Reason: Constipation Stop: 02/14/18 13:24 Calcium/Vitamin D (Oscal W/Vitamin D) 1 tab GT BID JAYLEN Stop: 02/14/18 16:59 Last Admin: 12/17/17 17:25 Dose: 1 tab Carbidopa/Levodopa (Sinemet 25mg-100 Mg) 1 tab GT QID JAYLEN Stop: 02/14/18 16:59 Last Admin: 12/17/17 17:25 Dose: 1 tab Dextrose/Sodium Chloride (D5-0.45ns) 1,000 mls @ 50 mls/hr IV .Q20H [facility] Stop: 02/14/18 13:44 Last Admin: 12/17/17 16:53 Dose: 50 mls/hr Latanoprost (Xalatan 0.005% Ophth Soln) 1 drop EACH EYE HS JAYLEN Stop: 02/14/18 20:59 Last Admin: 12/16/17 20:45 Dose: 1 drop Magnesium Hydroxide (Milk Of Magnesia) 30 ml GT HS PRN PRN Reason: Constipation Stop: 02/14/18 20:59 Ondansetron HCl (Zofran Odt) 4 mg SL Q6H PRN PRN Reason: Nausea Stop: 02/14/18 13:24 Promethazine HCl/Dextromethorphan (Phenergan Dm 6.25/15mg-5 Ml) 5 ml PO Q6H PRN PRN Reason: Cough Stop: 02/14/18 13:26 Sennosides (Senna Plus 50 Mg-8.6 Mg) 1 tab GT HS JAYLEN Stop: 02/14/18 20:59 Last Admin: 12/16/17 20:42 Dose: 1 tab Sodium Phosphate (Fleet Enema) 135 ml RC Q48H PRN PRN Reason: Constipation Stop: 02/14/18 13:24 General: No acute distress Neck: Supple Cardiovascular: Regular rate Lungs: Clear to auscultation Abdomen: Bowel sounds, Obese, Other (INTACT 24F GT, NO OBVIOUS LEAK) - Procedures Procedures: Procedures Procedure Code Date CHANGE FEEDING DEVICE IN UP INTEST TRACT, RETAIL ATTENDANT APPROACH [id number] 08/05/17 CHANGE GASTROSTOMY TUBE 14781 10/24/16 Assessment/Plan - Assessment Assessment: IMPRESSION: 1. DYSPHAGIA/GT. 2. POSSIBLE GT SITE LEAK - LIKELY DUE TO LARGER CALIBER GC FISTULA. UGI SERIES SHOWED INTACT GT WITH MILD LEAKAGE. 3. DEMENTIA. RECS: 1. RESUME GT FEEDS AT LOW RATE AND ADVANCE NUSRAT. 2. GT CARE. 3. CONSIDER REGLAN TO IMPROVE GASTRIC TRANSIT OF FEEDS. 4. MAY NEED TO CHANGE GT TO 26F SIZE OR CONSIDER CONVERTING TO GASTROJEJUNOSTOMY TUBE IF LEAK PERSISTS DESPITE ABOVE MEASURES.
[2017-12-17] MEDS: Docusate Sodium/Senna Tab GT SCH (22:02)
[2017-12-18] MEDS: Calcium Carb/Vit D 500 mg/200 U Tab GT SCH ×2 (09:33→16:47)
[2017-12-18] MEDS: Aspirin 81mg Chewable Tab GT SCH (09:33)
[2017-12-18] MEDS: Multivitamin w/ Minerals Tab GT SCH (09:33)
--- NOTE | 2017-12-18 11:48 | General Progress Note ---
Subjective - Review of Systems Service Date: 12/18/17 Events since last encounter: contrast study noted no apparent leak reported by nursing Objective - Results Result Diagrams: 12/17/17 05:51 12/17/17 05:51 Recent Labs: Laboratory Last Values WBC 8.8 Th/cmm (4.8-10.8) 12/17/17 05:51 RBC 4.77 Mil/cmm (3.80-5.20) 12/17/17 05:51 Hgb 13.9 gm/dL (12-16) 12/17/17 05:51 Hct 42.0 % (41.0-60) 12/17/17 05:51 MCV 88.0 fl (81-100) 12/17/17 05:51 MCH 29.0 pg (27.0-31.0) 12/17/17 05:51 MCHC Differential 33.0 pg (28.0-36.0) 12/17/17 05:51 RDW 13.7 % (11.5-20.0) 12/17/17 05:51 Plt Count 277 Th/cmm (150-400) 12/17/17 05:51 MPV 8.1 fl 12/17/17 05:51 Neutrophils % 59.3 % (40.0-80.0) 12/17/17 05:51 Lymphocytes % 29.6 % (20.0-50.0) 12/17/17 05:51 Monocytes % 5.1 % (2.0-10.0) 12/17/17 05:51 Eosinophils % 5.4 % (0.0-5.0) H 12/17/17 05:51 Basophils % 0.6 % (0.0-2.0) 12/17/17 05:51 PT 10.3 SECONDS (9.5-11.5) 12/16/17 00:35 INR 0.99 (0.5-1.4) 12/16/17 00:35 Sodium 136 mEq/L (136-145) 12/17/17 05:51 Potassium 4.1 mEq/L (3.5-5.1) 12/17/17 05:51 Chloride 104 mEq/L (98-107) 12/17/17 05:51 Carbon Dioxide 25.5 mEq/L (21.0-31.0) 12/17/17 05:51 Anion Gap 10.6 (7.0-16.0) 12/17/17 05:51 BUN 22 mg/dL (7-25) 12/17/17 05:51 Creatinine 0.6 mg/dL (0.6-1.2) 12/17/17 05:51 Est GFR ( Amer) TNP 12/17/17 05:51 Est GFR (Non-Af Amer) TNP 12/17/17 05:51 BUN/Creatinine Ratio 36.7 12/17/17 05:51 Glucose 117 mg/dL (70-105) H 12/17/17 05:51 Calcium 9.2 mg/dL (8.6-10.3) 12/17/17 05:51 Total Bilirubin 0.3 mg/dL (0.3-1.0) 12/16/17 00:35 AST 19 U/L (13-39) 12/16/17 00:35 ALT 9 U/L (7-52) 12/16/17 00:35 Alkaline Phosphatase 102 U/L (34-104) 12/16/17 00:35 Total Protein 7.0 gm/dL (6.0-8.3) 12/16/17 00:35 Albumin 3.3 gm/dL (3.7-5.3) L 12/16/17 00:35 Globulin 3.7 gm/dL 12/16/17 00:35 Albumin/Globulin Ratio 0.9 (1.0-1.8) L 12/16/17 00:35 - Physical Exam Vitals and I&O: Vital Signs Temp 97.7 F 12/18/17 08:00 Pulse 82 12/18/17 08:06 Resp 18 12/18/17 08:06 BP 155/76 12/18/17 08:00 Pulse Ox 94 12/18/17 08:06 Intake & Output 12/17/17 12/18/17 12/18/17 18:59 06:59 18:59 Intake Total 1000 1108.333 Balance 1000 1108.333 Weight (lbs) 76.067 kg Intake: Intake, IV Amount 1000 698.333 D5-0.45NS 1,000 ml @ 50 1000 698.333 mls/hr IV .Q20H [facility] Rx#: [id number] Tube Feeding 410 Other: # Voids 2 # Bowel Movements 1 Active Medications: Current Medications Acetaminophen (Tylenol 650mg/20.3ml Suspension) 650 mg GT Q4H PRN PRN Reason: Pain or Fever >101 Stop: 02/14/18 13:23 Acetaminophen (Tylenol Extra Strength) 1,000 mg GT Q4H PRN PRN Reason: Pain (Moderate) Stop: 02/14/18 13:23 Albuterol Sulfate (Albuterol 2.5mg/3ml Neb Ud) 2.5 mg HHN Q6HRT PRN PRN Reason: Shortness of Breath Stop: 02/14/18 13:23 Ascorbic Acid (Vitamin C) 500 mg GT DAILY JAYLEN Stop: 02/15/18 08:59 Last Admin: 12/18/17 09:33 Dose: 500 mg Aspirin (Aspirin Chewable) 81 mg GT DAILY JAYLEN Stop: 02/15/18 08:59 Last Admin: 12/18/17 09:33 Dose: 81 mg Bisacodyl (Dulcolax 10 Mg Supp) 10 mg RC DAILY PRN PRN Reason: Constipation Stop: 02/14/18 13:24 Calcium/Vitamin D (Oscal W/Vitamin D) 1 tab GT BID JAYLEN Stop: 02/14/18 16:59 Last Admin: 12/18/17 09:33 Dose: 1 tab Carbidopa/Levodopa (Sinemet 25mg-100 Mg) 1 tab GT QID JAYLEN Stop: 02/14/18 16:59 Last Admin: 12/18/17 09:33 Dose: 1 tab Dextrose/Sodium Chloride (D5-0.45ns) 1,000 mls @ 50 mls/hr IV .Q20H [facility] Stop: 02/14/18 13:44 Last Infusion: 12/18/17 06:51 Dose: 50 mls/hr Latanoprost (Xalatan 0.005% Ophth Soln) 1 drop EACH EYE HS JAYLEN Stop: 02/14/18 20:59 Last Admin: 12/17/17 22:02 Dose: 1 drop Magnesium Hydroxide (Milk Of Magnesia) 30 ml GT HS PRN PRN Reason: Constipation Stop: 02/14/18 20:59 Ondansetron HCl (Zofran Odt) 4 mg SL Q6H PRN PRN Reason: Nausea Stop: 02/14/18 13:24 Promethazine HCl/Dextromethorphan (Phenergan Dm 6.25/15mg-5 Ml) 5 ml PO Q6H PRN PRN Reason: Cough Stop: 02/14/18 13:26 Sennosides (Senna Plus 50 Mg-8.6 Mg) 1 tab GT HS JAYLEN Stop: 02/14/18 20:59 Last Admin: 12/17/17 22:02 Dose: 1 tab Sodium Phosphate (Fleet Enema) 135 ml RC Q48H PRN PRN Reason: Constipation Stop: 02/14/18 13:24 General: No acute distress Neck: Supple Cardiovascular: Regular rate Lungs: Clear to auscultation Abdomen: Bowel sounds, Obese, Other (INTACT 24F GT, NO OBVIOUS LEAK) - Procedures Procedures: Procedures Procedure Code Date CHANGE FEEDING DEVICE IN UP INTEST TRACT, BEAM CARRIER HAULER PUSHER APPROACH [id number] 08/05/17 CHANGE GASTROSTOMY TUBE 13735 10/24/16 Nutritional Asmnt/Malnutr-PDOC - Dietary Evaluation Malnutrition Findings (Please click <Entered> for more info): Nutritional Asmnt/Malnutrition Start: 12/17/17 16: 30 Text: Status: Complete Freq: Document 12/17/17 16:30 LCHENG (Rec: 12/17/17 16:41 LCHENG [email or web address]) Nutritional Asmnt/Malnutrition Patient General Information Nutritional Screening High Risk Consult Diagnosis G-tube malfunction Pertinent Medical Hx/Surgical Hx CVA, parkinson, osteoporosis, quadiriplegia, dementia Subjective Information Consult received for low koby score. Spoke with RN, pt started TF this afternoon. Current Diet Order/ Nutrition Support Fibersource HN 20ml/hr continuous, goal rate 60ml/hr Pertinent Medications vit C, oscal w vit D, d5-0. 45ns, senna Pertinent Labs 12/17 glucose 117 Nutritional Hx/Data Height 1.63 m Height (Calculated Centimeters) 162.6 Current Weight (lbs) 73.936 kg Weight (Calculated Kilograms) 73.9 Weight (Calculated Grams) 92891.6 [place] Body Weight 120 Body Mass Index (BMI) 27.9 Weight Status Obese GI Symptoms GI Symptoms None Last BM no record Difficult in: None Usual diet at home fibersource 1.2 at 55ml/hr x 20hr Skin Integrity/Comment: ulcer-L big toe blister Estimated Nutritional Goals BEE in Kcals: Adj wt of IBW Calories/Kcals/Kg 25-30 Kcals Calculated 2406-1010 Protein: Adj wt of IBW Protein g/k-1.2 Protein Calculated 59-71 Fluid: ml 1475-1770ml (1ml/kcal) Nutritional Problem 1. Problem Problem increased nutrition needs ( protien) Etiology increased metabolic demand for wound healing Signs/Symptoms: ulcer to big toe Intervention/Recommendation Comments 1. Start TF as ordered. increase to goal rate of 55ml/ hr as tolerated. This will provide 1584kcal, 71g protein and 1068ml free water 2. Monitor TF rate, tolerance, wt weekly, skin integrity and labs 3. F/U as high risk in 2-3 days, 3/2-3/3 Expected Outcomes/Goals Expected Outcomes/Goals 1. Pt to meet at least 75% of nutritional needs via nutrition support with tolerance 2. Wt stability, skin to remain intact, labs to approach WNL.
--- NOTE | 2017-12-18 13:24 | GI Progress Note ---
Subjective - Review of Systems Subjective: NO EVENTS Objective - Results Result Diagrams: 12/17/17 05:51 12/17/17 05:51 Recent Labs: Laboratory Last Values WBC 8.8 Th/cmm (4.8-10.8) 12/17/17 05:51 RBC 4.77 Mil/cmm (3.80-5.20) 12/17/17 05:51 Hgb 13.9 gm/dL (12-16) 12/17/17 05:51 Hct 42.0 % (41.0-60) 12/17/17 05:51 MCV 88.0 fl (81-100) 12/17/17 05:51 MCH 29.0 pg (27.0-31.0) 12/17/17 05:51 MCHC Differential 33.0 pg (28.0-36.0) 12/17/17 05:51 RDW 13.7 % (11.5-20.0) 12/17/17 05:51 Plt Count 277 Th/cmm (150-400) 12/17/17 05:51 MPV 8.1 fl 12/17/17 05:51 Neutrophils % 59.3 % (40.0-80.0) 12/17/17 05:51 Lymphocytes % 29.6 % (20.0-50.0) 12/17/17 05:51 Monocytes % 5.1 % (2.0-10.0) 12/17/17 05:51 Eosinophils % 5.4 % (0.0-5.0) H 12/17/17 05:51 Basophils % 0.6 % (0.0-2.0) 12/17/17 05:51 PT 10.3 SECONDS (9.5-11.5) 12/16/17 00:35 INR 0.99 (0.5-1.4) 12/16/17 00:35 Sodium 136 mEq/L (136-145) 12/17/17 05:51 Potassium 4.1 mEq/L (3.5-5.1) 12/17/17 05:51 Chloride 104 mEq/L (98-107) 12/17/17 05:51 Carbon Dioxide 25.5 mEq/L (21.0-31.0) 12/17/17 05:51 Anion Gap 10.6 (7.0-16.0) 12/17/17 05:51 BUN 22 mg/dL (7-25) 12/17/17 05:51 Creatinine 0.6 mg/dL (0.6-1.2) 12/17/17 05:51 Est GFR ( Amer) TNP 12/17/17 05:51 Est GFR (Non-Af Amer) TNP 12/17/17 05:51 BUN/Creatinine Ratio 36.7 12/17/17 05:51 Glucose 117 mg/dL (70-105) H 12/17/17 05:51 Calcium 9.2 mg/dL (8.6-10.3) 12/17/17 05:51 Total Bilirubin 0.3 mg/dL (0.3-1.0) 12/16/17 00:35 AST 19 U/L (13-39) 12/16/17 00:35 ALT 9 U/L (7-52) 12/16/17 00:35 Alkaline Phosphatase 102 U/L (34-104) 12/16/17 00:35 Total Protein 7.0 gm/dL (6.0-8.3) 12/16/17 00:35 Albumin 3.3 gm/dL (3.7-5.3) L 12/16/17 00:35 Globulin 3.7 gm/dL 12/16/17 00:35 Albumin/Globulin Ratio 0.9 (1.0-1.8) L 12/16/17 00:35 - Physical Exam Vitals and I&O: Vital Signs Temp 97.7 F 12/18/17 08:00 Pulse 82 12/18/17 08:06 Resp 18 12/18/17 08:06 BP 155/76 12/18/17 08:00 Pulse Ox 94 12/18/17 08:06 Intake & Output 12/17/17 12/18/17 12/18/17 18:59 06:59 18:59 Intake Total 1000 1108.333 Balance 1000 1108.333 Weight (lbs) 76.067 kg Intake: Intake, IV Amount 1000 698.333 D5-0.45NS 1,000 ml @ 50 1000 698.333 mls/hr IV .Q20H [facility] Rx#: [id number] Tube Feeding 410 Other: # Voids 2 # Bowel Movements 1 Active Medications: Current Medications Acetaminophen (Tylenol 650mg/20.3ml Suspension) 650 mg GT Q4H PRN PRN Reason: Pain or Fever >101 Stop: 02/14/18 13:23 Acetaminophen (Tylenol Extra Strength) 1,000 mg GT Q4H PRN PRN Reason: Pain (Moderate) Stop: 02/14/18 13:23 Albuterol Sulfate (Albuterol 2.5mg/3ml Neb Ud) 2.5 mg HHN Q6HRT PRN PRN Reason: Shortness of Breath Stop: 02/14/18 13:23 Ascorbic Acid (Vitamin C) 500 mg GT DAILY [facility] Stop: 02/15/18 08:59 Last Admin: 12/18/17 09:33 Dose: 500 mg Aspirin (Aspirin Chewable) 81 mg GT DAILY [facility] Stop: 02/15/18 08:59 Last Admin: 12/18/17 09:33 Dose: 81 mg Bisacodyl (Dulcolax 10 Mg Supp) 10 mg RC DAILY PRN PRN Reason: Constipation Stop: 02/14/18 13:24 Calcium/Vitamin D (Oscal W/Vitamin D) 1 tab GT BID [facility] Stop: 02/14/18 16:59 Last Admin: 12/18/17 09:33 Dose: 1 tab Carbidopa/Levodopa (Sinemet 25mg-100 Mg) 1 tab GT QID [facility]LEN Stop: 02/14/18 16:59 Last Admin: 12/18/17 09:33 Dose: 1 tab Dextrose/Sodium Chloride (D5-0.45ns) 1,000 mls @ 50 mls/hr IV .Q20H JAYLEN Stop: 02/14/18 13:44 Last Infusion: 12/18/17 06:51 Dose: 50 mls/hr Latanoprost (Xalatan 0.005% Ophth Soln) 1 drop EACH EYE HS JAYLEN Stop: 02/14/18 20:59 Last Admin: 12/17/17 22:02 Dose: 1 drop Magnesium Hydroxide (Milk Of Magnesia) 30 ml GT HS PRN PRN Reason: Constipation Stop: 02/14/18 20:59 Ondansetron HCl (Zofran Odt) 4 mg SL Q6H PRN PRN Reason: Nausea Stop: 02/14/18 13:24 Promethazine HCl/Dextromethorphan (Phenergan Dm 6.25/15mg-5 Ml) 5 ml PO Q6H PRN PRN Reason: Cough Stop: 02/14/18 13:26 Sennosides (Senna Plus 50 Mg-8.6 Mg) 1 tab GT HS JAYLEN Stop: 02/14/18 20:59 Last Admin: 12/17/17 22:02 Dose: 1 tab Sodium Phosphate (Fleet Enema) 135 ml RC Q48H PRN PRN Reason: Constipation Stop: 02/14/18 13:24 General: No acute distress Neck: Supple Cardiovascular: Regular rate Lungs: Clear to auscultation Abdomen: Bowel sounds, Obese, Other (INTACT 24F GT, NO OBVIOUS LEAK) - Procedures Procedures: Procedures Procedure Code Date CHANGE FEEDING DEVICE IN UP INTEST TRACT, [employer] APPROACH [id number] 08/05/17 CHANGE GASTROSTOMY TUBE 20122 10/24/16 Assessment/Plan - Assessment Assessment: NUSRAT TUBE FEEDS 1.CONT TUBE FEEDS 2.CONT SUPP CARE
[2017-12-18] MEDS: D5-0.45NS 1,000 ML IV SCH (13:33)
--- NOTE | 2017-12-18 17:34 | Infectious Disease Prog Note ---
Infectious Disease Subjective - Review of Systems Service Date: 12/18/17 Subjective: no new change,, no leak from G tube site. Infectious Disease Objective - Results Result Diagrams: 12/17/17 05:51 12/17/17 05:51 Recent Labs: Laboratory Last Values WBC 8.8 Th/cmm (4.8-10.8) 12/17/17 05:51 RBC 4.77 Mil/cmm (3.80-5.20) 12/17/17 05:51 Hgb 13.9 gm/dL (12-16) 12/17/17 05:51 Hct 42.0 % (41.0-60) 12/17/17 05:51 MCV 88.0 fl (81-100) 12/17/17 05:51 MCH 29.0 pg (27.0-31.0) 12/17/17 05:51 MCHC Differential 33.0 pg (28.0-36.0) 12/17/17 05:51 RDW 13.7 % (11.5-20.0) 12/17/17 05:51 Plt Count 277 Th/cmm (150-400) 12/17/17 05:51 MPV 8.1 fl 12/17/17 05:51 Neutrophils % 59.3 % (40.0-80.0) 12/17/17 05:51 Lymphocytes % 29.6 % (20.0-50.0) 12/17/17 05:51 Monocytes % 5.1 % (2.0-10.0) 12/17/17 05:51 Eosinophils % 5.4 % (0.0-5.0) H 12/17/17 05:51 Basophils % 0.6 % (0.0-2.0) 12/17/17 05:51 PT 10.3 SECONDS (9.5-11.5) 12/16/17 00:35 INR 0.99 (0.5-1.4) 12/16/17 00:35 Sodium 136 mEq/L (136-145) 12/17/17 05:51 Potassium 4.1 mEq/L (3.5-5.1) 12/17/17 05:51 Chloride 104 mEq/L (98-107) 12/17/17 05:51 Carbon Dioxide 25.5 mEq/L (21.0-31.0) 12/17/17 05:51 Anion Gap 10.6 (7.0-16.0) 12/17/17 05:51 BUN 22 mg/dL (7-25) 12/17/17 05:51 Creatinine 0.6 mg/dL (0.6-1.2) 12/17/17 05:51 Est GFR ( Amer) TNP 12/17/17 05:51 Est GFR (Non-Af Amer) TNP 12/17/17 05:51 BUN/Creatinine Ratio 36.7 12/17/17 05:51 Glucose 117 mg/dL (70-105) H 12/17/17 05:51 Calcium 9.2 mg/dL (8.6-10.3) 12/17/17 05:51 Total Bilirubin 0.3 mg/dL (0.3-1.0) 12/16/17 00:35 AST 19 U/L (13-39) 12/16/17 00:35 ALT 9 U/L (7-52) 12/16/17 00:35 Alkaline Phosphatase 102 U/L (34-104) 12/16/17 00:35 Total Protein 7.0 gm/dL (6.0-8.3) 12/16/17 00:35 Albumin 3.3 gm/dL (3.7-5.3) L 12/16/17 00:35 Globulin 3.7 gm/dL 12/16/17 00:35 Albumin/Globulin Ratio 0.9 (1.0-1.8) L 12/16/17 00:35 - Physical Exam Vitals and I&O: Vital Signs Temp 97.5 F 12/18/17 16:00 Pulse 75 12/18/17 16:00 Resp 18 12/18/17 16:00 BP 173/94 12/18/17 16:00 Pulse Ox 97 12/18/17 16:00 Intake & Output 12/17/17 12/18/17 12/18/17 18:59 06:59 18:59 Intake Total 1000 1108.333 301.667 Balance 1000 1108.333 301.667 Weight (lbs) 76.067 kg Intake: Intake, IV Amount 1000 698.333 301.667 D5-0.45NS 1,000 ml @ 50 1000 698.333 301.667 mls/hr IV .Q20H [facility] Rx#: [id number] Tube Feeding 410 Other: # Voids 2 # Bowel Movements 1 Active Medications: Current Medications Acetaminophen (Tylenol 650mg/20.3ml Suspension) 650 mg GT Q4H PRN PRN Reason: Pain or Fever >101 Stop: 02/14/18 13:23 Acetaminophen (Tylenol Extra Strength) 1,000 mg GT Q4H PRN PRN Reason: Pain (Moderate) Stop: 02/14/18 13:23 Albuterol Sulfate (Albuterol 2.5mg/3ml Neb Ud) 2.5 mg HHN Q6HRT PRN PRN Reason: Shortness of Breath Stop: 02/14/18 13:23 Ascorbic Acid (Vitamin C) 500 mg GT DAILY [facility] Stop: 02/15/18 08:59 Last Admin: 12/18/17 09:33 Dose: 500 mg Aspirin (Aspirin Chewable) 81 mg GT DAILY [facility] Stop: 02/15/18 08:59 Last Admin: 12/18/17 09:33 Dose: 81 mg Bisacodyl (Dulcolax 10 Mg Supp) 10 mg RC DAILY PRN PRN Reason: Constipation Stop: 02/14/18 13:24 Calcium/Vitamin D (Oscal W/Vitamin D) 1 tab GT BID [facility] Stop: 02/14/18 16:59 Last Admin: 12/18/17 16:47 Dose: 1 tab Carbidopa/Levodopa (Sinemet 25mg-100 Mg) 1 tab GT QID JAYLEN Stop: 02/14/18 16:59 Last Admin: 12/18/17 16:47 Dose: 1 tab Dextrose/Sodium Chloride (D5-0.45ns) 1,000 mls @ 50 mls/hr IV .Q20H JAYLEN Stop: 02/14/18 13:44 Last Admin: 12/18/17 13:33 Dose: 50 mls/hr Latanoprost (Xalatan 0.005% Ophth Soln) 1 drop EACH EYE HS JAYLEN Stop: 02/14/18 20:59 Last Admin: 12/17/17 22:02 Dose: 1 drop Magnesium Hydroxide (Milk Of Magnesia) 30 ml GT HS PRN PRN Reason: Constipation Stop: 02/14/18 20:59 Ondansetron HCl (Zofran Odt) 4 mg SL Q6H PRN PRN Reason: Nausea Stop: 02/14/18 13:24 Promethazine HCl/Dextromethorphan (Phenergan Dm 6.25/15mg-5 Ml) 5 ml PO Q6H PRN PRN Reason: Cough Stop: 02/14/18 13:26 Sennosides (Senna Plus 50 Mg-8.6 Mg) 1 tab GT HS JAYLEN Stop: 02/14/18 20:59 Last Admin: 12/17/17 22:02 Dose: 1 tab Sodium Phosphate (Fleet Enema) 135 ml RC Q48H PRN PRN Reason: Constipation Stop: 02/14/18 13:24 General: no acute distress, well developed, well nourished HEENT: atraumatic, normocephalic, PERRLA, EOMI, moist mucous membrane Neck: supple, no thyromegaly Cardiovascular: S1S2, regular Lungs: clear to auscultation bilaterally, clear to percussion Abdomen: soft, no tender, no distended Extremities: no cyanosis, no clubbing, no edema Neurological: awake, alert, oriented Skin: intact - Procedures Procedures: Procedures Procedure Code Date CHANGE FEEDING DEVICE IN UP INTEST TRACT, DIRECTOR MEETINGS APPROACH [id number] 08/05/17 CHANGE GASTROSTOMY TUBE 60273 10/24/16 Infectious Disease Assmt/Plan - Assessment Assessment: 1. G-tube leak. 2. Left big toe lesion likely blister versus hematoma, rule out peripheral artery disease.. 3. Parkinson's disease. 4. Dementia. 5. Contractures. 6. Parkinson disease. 7. Hypertension. 8. Glaucoma. 9. Dysphagia. - Plan Plan: Cpm february/u with dr Dial for her PAD. Nutritional Asmnt/Malnutr-PDOC - Dietary Evaluation Malnutrition Findings (Please click <Entered> for more info): Nutritional Asmnt/Malnutrition Start: 12/17/17 16: 30 Text: Status: Complete Freq: Document 12/17/17 16:30 [email or web address] (Rec: 12/17/17 16:41 [email or web address] [email or web address]) Nutritional Asmnt/Malnutrition Patient General Information Nutritional Screening High Risk Consult Diagnosis G-tube malfunction Pertinent Medical Hx/Surgical Hx CVA, parkinson, osteoporosis, quadiriplegia, dementia Subjective Information Consult received for low koby score. Spoke with RN, pt started TF this afternoon. Current Diet Order/ Nutrition Support Fibersource HN 20ml/hr continuous, goal rate 60ml/hr Pertinent Medications vit C, oscal w vit D, d5-0. 45ns, senna Pertinent Labs 12/17 glucose 117 Nutritional Hx/Data Height 1.63 m Height (Calculated Centimeters) 162.6 Current Weight (lbs) 73.936 kg Weight (Calculated Kilograms) 73.9 Weight (Calculated Grams) 41161.6 [place] Body Weight 120 Body Mass Index (BMI) 27.9 Weight Status Obese GI Symptoms GI Symptoms None Last BM no record Difficult in: None Usual diet at home fibersource 1.2 at 55ml/hr x 20hr Skin Integrity/Comment: ulcer-L big toe blister Estimated Nutritional Goals BEE in Kcals: Adj wt of IBW Calories/Kcals/Kg 25-30 Kcals Calculated 4339-3056 Protein: Adj wt of IBW Protein g/k-1.2 Protein Calculated 59-71 Fluid: ml 1475-1770ml (1ml/kcal) Nutritional Problem 1. Problem Problem increased nutrition needs ( protien) Etiology increased metabolic demand for wound healing Signs/Symptoms: ulcer to big toe Intervention/Recommendation Comments 1. Start TF as ordered. increase to goal rate of 55ml/ hr as tolerated. This will provide 1584kcal, 71g protein and 1068ml free water 2. Monitor TF rate, tolerance, wt weekly, skin integrity and labs 3. F/U as high risk in 2-3 days, 3/2-3/3 Expected Outcomes/Goals Expected Outcomes/Goals 1. Pt to meet at least 75% of nutritional needs via nutrition support with tolerance 2. Wt stability, skin to remain intact, labs to approach WNL.
--- NOTE | 2017-12-18 19:01 | Internal Medicine Prog Note ---
Internal Medicine Objective - Results Result Diagrams: 12/17/17 05:51 12/17/17 05:51 Recent Labs: Laboratory Last Values WBC 8.8 Th/cmm (4.8-10.8) 12/17/17 05:51 RBC 4.77 Mil/cmm (3.80-5.20) 12/17/17 05:51 Hgb 13.9 gm/dL (12-16) 12/17/17 05:51 Hct 42.0 % (41.0-60) 12/17/17 05:51 MCV 88.0 fl (81-100) 12/17/17 05:51 MCH 29.0 pg (27.0-31.0) 12/17/17 05:51 MCHC Differential 33.0 pg (28.0-36.0) 12/17/17 05:51 RDW 13.7 % (11.5-20.0) 12/17/17 05:51 Plt Count 277 Th/cmm (150-400) 12/17/17 05:51 MPV 8.1 fl 12/17/17 05:51 Neutrophils % 59.3 % (40.0-80.0) 12/17/17 05:51 Lymphocytes % 29.6 % (20.0-50.0) 12/17/17 05:51 Monocytes % 5.1 % (2.0-10.0) 12/17/17 05:51 Eosinophils % 5.4 % (0.0-5.0) H 12/17/17 05:51 Basophils % 0.6 % (0.0-2.0) 12/17/17 05:51 PT 10.3 SECONDS (9.5-11.5) 12/16/17 00:35 INR 0.99 (0.5-1.4) 12/16/17 00:35 Sodium 136 mEq/L (136-145) 12/17/17 05:51 Potassium 4.1 mEq/L (3.5-5.1) 12/17/17 05:51 Chloride 104 mEq/L (98-107) 12/17/17 05:51 Carbon Dioxide 25.5 mEq/L (21.0-31.0) 12/17/17 05:51 Anion Gap 10.6 (7.0-16.0) 12/17/17 05:51 BUN 22 mg/dL (7-25) 12/17/17 05:51 Creatinine 0.6 mg/dL (0.6-1.2) 12/17/17 05:51 Est GFR ( Amer) TNP 12/17/17 05:51 Est GFR (Non-Af Amer) TNP 12/17/17 05:51 BUN/Creatinine Ratio 36.7 12/17/17 05:51 Glucose 117 mg/dL (70-105) H 12/17/17 05:51 Calcium 9.2 mg/dL (8.6-10.3) 12/17/17 05:51 Total Bilirubin 0.3 mg/dL (0.3-1.0) 12/16/17 00:35 AST 19 U/L (13-39) 12/16/17 00:35 ALT 9 U/L (7-52) 12/16/17 00:35 Alkaline Phosphatase 102 U/L (34-104) 12/16/17 00:35 Total Protein 7.0 gm/dL (6.0-8.3) 12/16/17 00:35 Albumin 3.3 gm/dL (3.7-5.3) L 12/16/17 00:35 Globulin 3.7 gm/dL 12/16/17 00:35 Albumin/Globulin Ratio 0.9 (1.0-1.8) L 12/16/17 00:35 - Physical Exam Vitals and I&O: Vital Signs Temp 97.5 F 12/18/17 17:40 Pulse 75 12/18/17 17:40 Resp 18 12/18/17 17:40 BP 173/94 12/18/17 16:00 Pulse Ox 97 12/18/17 17:40 Intake & Output 12/18/17 12/18/17 12/19/17 06:59 18:59 06:59 Intake Total 1351.626 4154.667 Balance 6209.728 3247.667 Weight (lbs) 76.067 kg 76.067 kg Intake: Intake, IV Amount 698.333 301.667 D5-0.45NS 1,000 ml @ 50 698.333 301.667 mls/hr IV .Q20H [facility] Rx#: [id number] Oral 600 Tube Feeding 410 520 Other: # Voids 2 3 # Bowel Movements 1 Active Medications: Current Medications Acetaminophen (Tylenol 650mg/20.3ml Suspension) 650 mg GT Q4H PRN PRN Reason: Pain or Fever >101 Stop: 02/14/18 13:23 Acetaminophen (Tylenol Extra Strength) 1,000 mg GT Q4H PRN PRN Reason: Pain (Moderate) Stop: 02/14/18 13:23 Albuterol Sulfate (Albuterol 2.5mg/3ml Neb Ud) 2.5 mg HHN Q6HRT PRN PRN Reason: Shortness of Breath Stop: 02/14/18 13:23 Ascorbic Acid (Vitamin C) 500 mg GT DAILY JAYLEN Stop: 02/15/18 08:59 Last Admin: 12/18/17 09:33 Dose: 500 mg Aspirin (Aspirin Chewable) 81 mg GT DAILY JAYLEN Stop: 02/15/18 08:59 Last Admin: 12/18/17 09:33 Dose: 81 mg Bisacodyl (Dulcolax 10 Mg Supp) 10 mg RC DAILY PRN PRN Reason: Constipation Stop: 02/14/18 13:24 Calcium/Vitamin D (Oscal W/Vitamin D) 1 tab GT BID JAYLEN Stop: 02/14/18 16:59 Last Admin: 12/18/17 16:47 Dose: 1 tab Carbidopa/Levodopa (Sinemet 25mg-100 Mg) 1 tab GT QID JAYLEN Stop: 02/14/18 16:59 Last Admin: 12/18/17 16:47 Dose: 1 tab Dextrose/Sodium Chloride (D5-0.45ns) 1,000 mls @ 50 mls/hr IV .Q20H JAYLEN Stop: 02/14/18 13:44 Last Admin: 12/18/17 13:33 Dose: 50 mls/hr Latanoprost (Xalatan 0.005% Ophth Soln) 1 drop EACH EYE HS JAYLEN Stop: 02/14/18 20:59 Last Admin: 12/17/17 22:02 Dose: 1 drop Magnesium Hydroxide (Milk Of Magnesia) 30 ml GT HS PRN PRN Reason: Constipation Stop: 02/14/18 20:59 Ondansetron HCl (Zofran Odt) 4 mg SL Q6H PRN PRN Reason: Nausea Stop: 02/14/18 13:24 Promethazine HCl/Dextromethorphan (Phenergan Dm 6.25/15mg-5 Ml) 5 ml PO Q6H PRN PRN Reason: Cough Stop: 02/14/18 13:26 Sennosides (Senna Plus 50 Mg-8.6 Mg) 1 tab GT HS JAYLEN Stop: 02/14/18 20:59 Last Admin: 12/17/17 22:02 Dose: 1 tab Sodium Phosphate (Fleet Enema) 135 ml RC Q48H PRN PRN Reason: Constipation Stop: 02/14/18 13:24 - Procedures Procedures: Procedures Procedure Code Date CHANGE FEEDING DEVICE IN UP INTEST TRACT, PUPPET MASTER APPROACH [id number] 08/05/17 CHANGE GASTROSTOMY TUBE 16614 10/24/16 Nutritional Asmnt/Malnutr-PDOC - Dietary Evaluation Malnutrition Findings (Please click <Entered> for more info): Nutritional Asmnt/Malnutrition Start: 12/17/17 16: 30 Text: Status: Complete Freq: Document 12/17/17 16:30 LISANDRO (Rec: 12/17/17 16:41 [facility]) Nutritional Asmnt/Malnutrition Patient General Information Nutritional Screening High Risk Consult Diagnosis G-tube malfunction Pertinent Medical Hx/Surgical Hx CVA, parkinson, osteoporosis, quadiriplegia, dementia Subjective Information Consult received for low koby score. Spoke with RN, pt started TF this afternoon. Current Diet Order/ Nutrition Support Fibersource HN 20ml/hr continuous, goal rate 60ml/hr Pertinent Medications vit C, oscal w vit D, d5-0. 45ns, senna Pertinent Labs 12/17 glucose 117 Nutritional Hx/Data Height 1.63 m Height (Calculated Centimeters) 162.6 Current Weight (lbs) 73.936 kg Weight (Calculated Kilograms) 73.9 Weight (Calculated Grams) 11227.6 [place] Body Weight 120 Body Mass Index (BMI) 27.9 Weight Status Obese GI Symptoms GI Symptoms None Last BM no record Difficult in: None Usual diet at home fibersource 1.2 at 55ml/hr x 20hr Skin Integrity/Comment: ulcer-L big toe blister Estimated Nutritional Goals BEE in Kcals: Adj wt of IBW Calories/Kcals/Kg 25-30 Kcals Calculated 7626-0269 Protein: Adj wt of IBW Protein g/k-1.2 Protein Calculated 59-71 Fluid: ml 1475-1770ml (1ml/kcal) Nutritional Problem 1. Problem Problem increased nutrition needs ( protien) Etiology increased metabolic demand for wound healing Signs/Symptoms: ulcer to big toe Intervention/Recommendation Comments 1. Start TF as ordered. increase to goal rate of 55ml/ hr as tolerated. This will provide 1584kcal, 71g protein and 1068ml free water 2. Monitor TF rate, tolerance, wt weekly, skin integrity and labs 3. F/U as high risk in 2-3 days, 3/2-3/3 Expected Outcomes/Goals Expected Outcomes/Goals 1. Pt to meet at least 75% of nutritional needs via nutrition support with tolerance 2. Wt stability, skin to remain intact, labs to approach WNL.
--- NOTE | 2017-12-19 17:30 | Discharge Summary ---
DATE OF DISCHARGE: 12/18/2017 HOSPITAL COURSE: This patient was admitted to [facility] because of G-tube site problem with G-tube leak, G-tube site cellulitis, history of Parkinson dementia, contractures, Parkinson disease, history of hypertension, glaucoma and dysphagia. The patient was admitted and Dr. Pacheco was consulted as well as Dr. Goyal. The patient had bilateral leg ultrasound to make sure she does not have PVD. The patient improved and the patient was in stable condition. The patient was discharged on 12/18/2017. FINAL DIAGNOSIS: G-tube leaking versus improving; history of Parkinson dementia; history of contracture; history of hypertension; glaucoma and dysphagia. MEDICATIONS: See the reconciliation list. CONDITION AT TIME OF DISCHARGE: Stable. FEEDING: Continue the G-tube feeding. MEDICATION: See the reconciliation sheet. The patient went back to [place]. JOB# [id number]
== END 2017-12-18 19:00 | disposition home or self-care (01) | DRG 919 ==
LOC: ER 00:03 → MSI 01:38
PROVIDERS: ADMIT Internal Medicine Infectious Disease; ATTEND Internal Medicine Infectious Disease
DX: T85.638A Leakage of other specified internal prosthetic devices, implants and grafts, initial encounter (principal); G82.50 Quadriplegia, unspecified; G20 Parkinson's disease; F02.81 Dementia in other diseases classified elsewhere, unspecified severity, with behavioral disturbance; E66.01 Morbid (severe) obesity due to excess calories; K94.22 Gastrostomy infection; L03.311 Cellulitis of abdominal wall; R13.10 Dysphagia, unspecified; I10 Essential (primary) hypertension; H40.9 Unspecified glaucoma; M81.0 Age-related osteoporosis without current pathological fracture; Y83.8 Other surgical procedures as the cause of abnormal reaction of the patient, or of later complication, without mention of misadventure at the time of the procedure; Y92.89 Other specified places as the place of occurrence of the external cause; Z68.28 Body mass index [BMI] 28.0-28.9, adult; I69.30 Unspecified sequelae of cerebral infarction; Z79.82 Long term (current) use of aspirin
CPT/HCPCS: 36415-UA; 80048-TC; 80053-TC; 85025-TC; 85610-TC; 93926-LT-TC; 94760; 96374; C9113; Z7610